=== PATIENT | male | born 1935 | race Caucasian/White ===

== ENCOUNTER → 2017-11-29 15:54 | Outpatient (CLI) | payer MEDICARE, SELFPAY ==
[2017-11-29 16:03] LABS: Hematocrit 42.1 % (40-54); Mean Corp Hgb Conc 33.3 g/gl (32-36); Mean Corpuscular Hgb 31.7 pg (27.0-32.0); Mean Corpuscular Volume 95.2 fL (80-94); Mean Platelet Vol. 11.1 fl (6.2-12.0); Platelet Count 225 K/mm3 (150-450); RBC Distribution Width CV 14.9 % (11.6-14.6); RBC Distribution Width SD 52.1 fl (35.1-43.9); Red Blood Count 4.42 M/mm3 (4.6-6.2); White Blood Count 6.9 K/mm3 (4.4-11.0)
[2017-11-29 16:04] LABS: Scan Indicated on CBC? Y/N NO
[2017-11-29 16:25] LABS: BUN 14 mg/dL (7-18); BUN/Creat Ratio 9.6 RATIO (10-20); Creatinine, Serum 1.46 mg/dL (0.70-1.30); EST Glomerular Filtration Rate 49 mL/min (>60); Est Glom Filt Rate - Afr Amer 60 mL/min (>60); Glucose 161 mg/dL (74-106)
[2017-11-29 16:26] LABS: Anion Gap 8 (5-15); Calcium,Total 8.4 mg/dL (8.5-10.1); Chloride 106 mmol/L (98-107); Cholesterol 134 mg/dL (200); High Density Lipoprotein 46 mg/dL; Sodium Level 141 mmol/L (136-145); Triglycerides 90 mg/dL; Very Low Density Lipoprotein 18 mg/dL (5-40)
== END ==
PROVIDERS: Family Provider Internal Medicine; PCP Internal Medicine; Visit Provider Internal Medicine
DX: N18.3 Chronic kidney disease, stage 3 (moderate) (principal); E78.00 Pure hypercholesterolemia, unspecified
CPT/HCPCS: 80048; 80061; 85027

== ENCOUNTER → 2018-05-30 12:03 | Outpatient (CLI) | payer MEDICARE, SELFPAY ==
[2018-05-30 12:30] LABS: Anion Gap 7 (5-15); BUN 14 mg/dL (7-18); BUN/Creat Ratio 10.4 RATIO (10-20); Calcium,Total 8.5 mg/dL (8.5-10.1); Chloride 107 mmol/L (98-107); Creatinine, Serum 1.35 mg/dL (0.70-1.30); EST Glomerular Filtration Rate 54 mL/min (>60); Est Glom Filt Rate - Afr Amer 65 mL/min (>60); Glucose 84 mg/dL (74-106); Potassium 3.9 mmol/L (3.5-5.1); Sodium Level 142 mmol/L (136-145)
== END ==
PROVIDERS: Family Provider Internal Medicine; PCP Internal Medicine; Referring Provider Nurse Practitioner; Visit Provider Nurse Practitioner
DX: N18.3 Chronic kidney disease, stage 3 (moderate) (principal)
CPT/HCPCS: 80048

== ENCOUNTER 2018-07-31 14:38 | Emergency (ER) | payer MEDICARE, SELFPAY ==
[2018-07-31 14:39] VITALS: BP 143/85; PULSE 106; RESP 15; TEMP 36.8; O2SAT 95; BMI 25.7
[2018-07-31 16:40] VITALS: PULSE 100; RESP 21; O2SAT 95
--- NOTE | 2018-07-31 17:33 | EKG12_ITS ---
Test Reason : Blood Pressure : / mmHG Vent. Rate : 088 BPM Atrial Rate : 088 BPM P-R Int : 288 ms QRS Dur : 120 ms QT Int : 374 ms P-R-T Axes : 089 -81 011 degrees QTc Int : 452 ms Sinus rhythm with 1st degree A-V block Left axis deviation Right bundle branch block Abnormal ECG Confirmed by ANIL FARRELL, PRAVEEN ([id number]), supervising editor news reel JOÃO DIAZ ([id number]) on 08/02/2018 3:20:55 PM Referred By: ISHAAN Confirmed By:PRAVEEN MA MD
--- NOTE | 2018-07-31 17:37 | RAD_ITS ---
STUDY: X-RAY CHEST REASON FOR EXAM: Male, 82 years old. Hypertension dizziness TECHNIQUE: Single AP portable view of the chest. COMPARISON: January 28, 2017 chest x-ray FINDINGS: There is a pattern of chronic appearing interstitial markings with areas of probable emphysematous change with a few areas of fibrosis. There is no demonstrated pleural abnormality. There is borderline cardiomegaly. Normal mediastinum and leydi. Normal visualized pulmonary arteries. There is atherosclerotic tortuosity of the aortic arch and descending thoracic aorta. There are diffuse degenerative changes of the visualized thoracic spine. Normal visualized ribs, clavicles, and shoulders. There is no demonstrated abnormality of the visualized soft tissue structures of the upper abdomen. RAD/Chest 1 View (Portable) IMPRESSION: Stable chest, no definitive acute focal infiltrate. Electronically Signed: Katina Espinoza MD at 18:24 EST Tel , Service support ,
[2018-07-31 17:52] VITALS: BP 146/93; BP 152/91; BP 153/80; PULSE 82; PULSE 92; PULSE 96
[2018-07-31 18:12] LABS: Anion Gap 9 (5-15); BUN 14 mg/dL (7-18); BUN/Creat Ratio 11.7 RATIO (10-20); Calcium,Total 8.7 mg/dL (8.5-10.1); Chloride 107 mmol/L (98-107); EST Glomerular Filtration Rate 62 mL/min (>60); Est Glom Filt Rate - Afr Amer 75 mL/min (>60); Estimated Creatinine Clearance 52.29 ml/min; Glucose 90 mg/dL (74-106); Potassium 4.1 mmol/L (3.5-5.1); Sodium Level 142 mmol/L (136-145)
[2018-07-31 18:17] LABS: Absolute Lymphocyte Count 1.56 X10^3/ul (0.83-4.51); Absolute Neutrophil Count 7.8 X10^3/uL (2.0-7.7); Basophil# 0.02 X10^3/uL; Basophil% 0.2 % (0-1); Eosinophil# 0.04 X10^3/uL; Eosinophils% 0.4 % (0-5); Hematocrit 43.8 % (40-54); Hemoglobin 14.6 g/dl (13.0-16.5); Lymphocyte # 1.56 X10^3/ul (4.0); Lymphocyte % 15.7 % (19-41); Mean Corp Hgb Conc 33.3 g/gl (32-36); Mean Corpuscular Hgb 32.1 pg (27.0-32.0); Mean Corpuscular Volume 96.3 fL (80-94); Mean Platelet Vol. 10.8 fl (6.2-12.0); Monocyte# 0.51 X10^3/uL; Monocyte% 5.1 % (0-10); Neutrophil # 7.77 X10^3/uL (2.7-7.7); Neutrophil % 78.5 % (47-70); Platelet Count 226 K/mm3 (150-450); RBC Distribution Width CV 13.9 % (11.6-14.6); RBC Distribution Width SD 49.1 fl (35.1-43.9); Red Blood Count 4.55 M/mm3 (4.6-6.2); White Blood Count 9.9 K/mm3 (4.4-11.0)
[2018-07-31 18:23] LABS: POSITIVE COUNT NO; POSITIVE DIFFERENTIAL NO; POSITIVE MORPHOLOGY NO
--- NOTE | 2018-07-31 18:42 | ED.DCSUM_ITS ---
- ER Visit Summary Date of Service: 07/31/18 Chief Complaint: Dizziness History of Present Illness: The patient is a 82 M who states that for the past 2 nights he has been laying in bed and goes to roll to his right side and has several seconds of room spinning. It abates that he goes back to bed. Today w ent to lay back in his chair and developed a near syncope-like sensation that started his feet and moved up to his chest. That has since abated. He said no further symptoms while waiting in the waiting room. History of peripheral arterial disease as well as COPD. He also has a history of GI bleed he is on Plavix and he is a smoker. He denies any black or bloody stools Physical Examination: Afebrile vital signs are stable Gen: Well-nourished well-developed Head: Normocephalic atraumatic Eyes: Perrl EOMI ENT: TMs clear no rhinorrhea moist mucous membranes Neck: Supple no lymphadenopathy no JVD nontender CVS: Regular rate rhythm no murmurs normal S1-S2 Respiratory: No distress clear to auscultation bilaterally chest nontender Abdomen: Soft nontender nondistended normal bowel sounds no masses Back: Nontender Extremity: Nontender no edema Skin: Normal color no rash Neuro: alert orientated ?3 CN II-XII intact normal strength sensation reflexes gait cerebellar Psych: Normal affect normal mood Test Results: EKG sinus with a rate of 88 CBC chemistries troponin were negative. Chest x-ray negative. Emergency Department Course and Treatment: Orthostatics were negative. He states he had another near syncopal-like event in front of the nurse while on the monitor but there was no dysrhythmia noted and it lasted seconds and resolved. He states he feels like he wants to go home he does not wish to be admitted. He would like to go home and eat patient will follow up with his doctor return if worsening or concerns Impression: 1. Dizziness 2. Near syncope This note was generated with [employer] dictation software. It may contain incorrect words, spelling, and punctuation that were not noted in review of the chart prior to signing ED Disposition - Plan for ED Patient: Disposition: Home or Assisted Living Chief Complaint: Dizziness Instructions: ED Dizziness UKO, ED Near Syncope Unkn Referrals: Rich Burnett MD [Primary Care Provider] - 2 Days
[2018-07-31 18:59] VITALS: BP 153/72; PULSE 84; RESP 22; O2SAT 97
--- NOTE | 2018-07-31 19:00 | ED.RN ---
THIS NURSE REVIEWED D/C INSTRUCTIONS WITH PT AND FAMILY. PT VERBALIZED UNDERSTANDING OF INSTRUCTIONS. IV D/C. IV CATHETER INTACT. PT TOLERATED WELL. PT DENIES FURTHER NEEDS OR QUESTIONS AT THIS TIME
== END 2018-07-31 19:01 | disposition home or self-care (01) ==
PROVIDERS: Emergency Provider Emergency Medicine; Family Provider Internal Medicine; PCP Internal Medicine
DX: R42 Dizziness and giddiness (principal); R55 Syncope and collapse; J44.9 Chronic obstructive pulmonary disease, unspecified; F17.200 Nicotine dependence, unspecified, uncomplicated; Z87.19 Personal history of other diseases of the digestive system; Z79.01 Long term (current) use of anticoagulants; Z79.899 Other long term (current) drug therapy
CPT/HCPCS: 71045; 80048; 84484; 85025; 93005; 99285

== ENCOUNTER → 2018-11-23 10:07 | Outpatient (CLI) | payer MEDICARE, SELFPAY ==
[2018-11-23 10:24] LABS: Hematocrit 44.3 % (40-54); Mean Corp Hgb Conc 33.9 g/gl (32-36); Mean Corpuscular Hgb 32.1 pg (27.0-32.0); Mean Corpuscular Volume 94.7 fL (80-94); Platelet Count 242 K/mm3 (150-450); RBC Distribution Width CV 14.5 % (11.6-14.6); RBC Distribution Width SD 50.1 fl (35.1-43.9); Red Blood Count 4.68 M/mm3 (4.6-6.2); White Blood Count 7.8 K/mm3 (4.4-11.0)
[2018-11-23 10:29] LABS: Scan Indicated on CBC? Y/N NO
[2018-11-23 10:35] LABS: ALB/GLOB Ratio 0.8 RATIO (0.9-2.4); AST(SGOT) 22 U/L (15-37); Alanine Aminotransfer ALT/SGPT 22 U/L (16-61); Albumin, Serum 3.3 g/dL (3.2-5.0); Alkaline Phosphatase 71 U/L (45-117); Anion Gap 5 (5-15); BUN 16 mg/dL (7-18); BUN/Creat Ratio 11.9 RATIO (10-20); Calcium,Total 8.6 mg/dL (8.5-10.1); Chloride 110 mmol/L (98-107); Cholesterol 155 mg/dL (200); Creatinine, Serum 1.34 mg/dL (0.70-1.30); EST Glomerular Filtration Rate 54 mL/min (>60); Est Glom Filt Rate - Afr Amer 66 mL/min (>60); Globulin 4.3 g/dL (2.2-4.2); Glucose 95 mg/dL (74-106); High Density Lipoprotein 48 mg/dL; Potassium 4.1 mmol/L (3.5-5.1); Protein, Total 7.6 g/dL (6.4-8.2); Sodium Level 143 mmol/L (136-145); Triglycerides 108 mg/dL; Very Low Density Lipoprotein 22 mg/dL (5-40)
== END ==
PROVIDERS: Family Provider Internal Medicine; PCP Internal Medicine; Referring Provider Internal Medicine; Visit Provider Internal Medicine
DX: E78.00 Pure hypercholesterolemia, unspecified (principal); N18.3 Chronic kidney disease, stage 3 (moderate)
CPT/HCPCS: 80053; 80061; 85027

== ENCOUNTER → 2019-05-29 12:39 | Outpatient (CLI) | payer MEDICARE, SELFPAY ==
[2019-05-29 13:28] LABS: Anion Gap 6 (5-15); BUN 8 mg/dL (7-18); BUN/Creat Ratio 6.3 RATIO (10-20); Calcium,Total 8.7 mg/dL (8.5-10.1); Chloride 108 mmol/L (98-107); Creatinine, Serum 1.26 mg/dL (0.70-1.30); EST Glomerular Filtration Rate 58 mL/min (>60); Est Glom Filt Rate - Afr Amer 71 mL/min (>60); Glucose 84 mg/dL (74-106); Potassium 3.9 mmol/L (3.5-5.1); Sodium Level 144 mmol/L (136-145)
== END ==
PROVIDERS: Family Provider Internal Medicine; PCP Internal Medicine; Referring Provider Nurse Practitioner; Visit Provider Nurse Practitioner
DX: N18.3 Chronic kidney disease, stage 3 (moderate) (principal)
CPT/HCPCS: 80048

== ENCOUNTER → 2019-11-20 13:13 | Outpatient (CLI) | payer MEDICARE, SELFPAY ==
[2019-11-20 13:41] LABS: ALB/GLOB Ratio 0.8 RATIO (0.9-2.4); AST(SGOT) 17 U/L (15-37); Alanine Aminotransfer ALT/SGPT 24 U/L (16-61); Albumin, Serum 3.4 g/dL (3.2-5.0); Alkaline Phosphatase 74 U/L (45-117); Anion Gap 4 (5-15); BUN 13 mg/dL (7-18); BUN/Creat Ratio 9.1 RATIO (10-20); Calcium,Total 8.7 mg/dL (8.5-10.1); Chloride 109 mmol/L (98-107); Cholesterol 143 mg/dL (200); Creatinine, Serum 1.43 mg/dL (0.70-1.30); EST Glomerular Filtration Rate 50 mL/min (>60); Est Glom Filt Rate - Afr Amer 61 mL/min (>60); Globulin 4.1 g/dL (2.2-4.2); Glucose 92 mg/dL (74-106); High Density Lipoprotein 46 mg/dL; Potassium 3.9 mmol/L (3.5-5.1); Protein, Total 7.5 g/dL (6.4-8.2); Sodium Level 141 mmol/L (136-145); Triglycerides 120 mg/dL; Very Low Density Lipoprotein 24 mg/dL (5-40)
== END ==
PROVIDERS: PCP Internal Medicine; Referring Provider Internal Medicine; Visit Provider Internal Medicine
DX: E78.00 Pure hypercholesterolemia, unspecified (principal)
CPT/HCPCS: 80053; 80061

== ENCOUNTER 2020-08-08 14:37 | Emergency (ER) | payer MEDICARE, SELFPAY ==
[2020-08-08 14:39] VITALS: BP 135/79; PULSE 97; RESP 18; TEMP 35.8; O2SAT 97; BMI 26.5
[2020-08-08 14:43] VITALS: BP 160/79; PULSE 97; RESP 18; O2SAT 95
--- NOTE | 2020-08-08 14:43 | EKG12_ITS ---
Test Reason : STROKE TEAM Blood Pressure : / mmHG Vent. Rate : 091 BPM Atrial Rate : 091 BPM P-R Int : 272 ms QRS Dur : 124 ms QT Int : 378 ms P-R-T Axes : 105 -84 071 degrees QTc Int : 464 ms Sinus rhythm with 1st degree A-V block Left axis deviation Right bundle branch block Inferior infarct , age undetermined Abnormal ECG Confirmed by RADHA FARRELL, REGINALD ([id number]), electronic news gathering editor JOÃO DIAZ ([id number]) on 08/13/2020 6:34:05 AM Referred By: JORY Confirmed By:REGINALD GARCIA MD
--- NOTE | 2020-08-08 14:43 | CT_ITS ---
STUDY: CT HEAD STROKE PROTOCOL W/O CONTRAST INJECTION REASON FOR EXAM: Male, 84 years old. Neuro deficit, acute stroke suspected RADIATION DOSAGE (If Supplied By Facility): CTDIvol = ( 44.99 ) mGy, DLP = ( 863.60 ) mGycm TECHNIQUE: Transaxial CT imaging of the brain was performed without administration of intravenous contrast material. Individualized dose optimization techniques were used for this CT. COMPARISON: Comparison is made with prior examination dated 01/24/2017. FINDINGS: Normal soft tissue structures. Normal calvarium. There is mild cerebral atrophy with widening of the extra-axial spaces and ventricular dilatation. There are areas of decreased attenuation within the white matter tracts of the supratentorial brain, consistent with microvascular disease changes. Normal basal ganglia and thalami. Normal brainstem. Normal cerebellum. There is no intracranial hemorrhage. There are no findings of an acute ischemic infarction. Atherosclerotic calcification of the cavernous portions of the internal carotid arteries as well as the vertebral arteries. Partial opacification of the left sphenoid sinus and minimal mucosal thickening of the posterior aspect of the right ethmoid sinus. CT/STROKE Brain/Head without Cont IMPRESSION: Chronic involutional changes of the brain. N.B. : The above information has been verbally conveyed by Joe Rangel to Jamal Richards on 08/08/2020 15:00:45 (ET). Electronically Signed: Joe Rangel, at 15:02 EST , Service support ,
--- NOTE | 2020-08-08 14:53 | CM.ED ---
Social Work Responding to stroke alert. No family present. Per medical team patient spouse left. At the time that patient left was unaware that patient would be a stroke alert. Telephone call to patient spouse, voicemail left. Only have home phone listed on chart. Will continue to follow as needed. Jerel MANDEL, HAYDEN
[2020-08-08 14:56] LABS: Bedside Glucose 98 mg/dL (70-110)
--- NOTE | 2020-08-08 14:56 | NURSING ---
[id number] STROKE ALERT CALLED
[2020-08-08 14:59] VITALS: BMI 27.8
--- NOTE | 2020-08-08 15:01 | ED.DCSUM_ITS ---
- ER Visit Summary Date of Service: 08/08/20 Chief Complaint: Lightheaded and off-balance History of Present Illness: The patient is a [address] Burnett. He reports that 2 days ago when he got out of bed he felt very lightheaded and off balance. He fell and hit his head against the wall. Did not have loss of consciousness. He is not on anticoagulants. However, he is on Plavix and aspirin. He states that he felt fine yesterday. Patient went to bed last night at 1030 and was fine. He woke at 430 this morning and when he got out of bed he was very lightheaded and off-balance again. States this only occurs when he stands up. There is no vertigo. He has no symptoms with movement of his head. He denies any syncope. Patient denies any other neurologic symptoms. He does not have a headache. No numbness or weakness. No change in his speech. No expressive or receptive aphasia. No vertigo. On review of systems patient reports he has a cough is productive clear sputum without blood. He denies any fever, chills, chest pain, shortness of breath. Physical Examination: Vitals: Stable. Afebrile. General: Well-nourished and well-developed. Head: Normocephalic atraumatic. Neck: Supple, no lymphadenopathy. No JVD. Nontender. Cardiovascular: Regular rate and rhythm. No murmurs. Respiratory: No respiratory distress. Clear to auscultation bilaterally. Abdominal: Soft, nontender, nondistended, normal bowel sounds. No guarding, rebound, or peritoneal signs. Back: Nontender. Extremities: Nontender, no edema. Skin: Normal color, no rash. Neurologic: Alert and oriented ?3. Cranial nerves II through XII are intact. Normal strength and sensation. Psych: Normal affect. Test Results: EKG is sinus at 91 with first-degree AV block and a right bundle marni block. Some change from July 2018. Troponin is negative. Chem-7 gregorio ws a chloride of 111 and creatinine 1.32. CBC is normal. COVID-19 is negative. Clinical Impression(s) from Imaging Studies Brain CT 08/08/20 14:43 IMPRESSION: Chronic involutional changes of the brain. N.B. : The above information has been verbally conveyed by Joe Rangel to Jamal Richards on 08/08/2020 15:00:45 (ET). Electronically Signed: Joe Rangel, at 15:02 EST , Service support , ADDENDUM: 08/08/20 1509 IMPRESSION: Chronic involutional changes of the brain. N.B. : The above information has been verbally conveyed by Joe Rangel to Jamal Richards on 08/08/2020 15:00:45 (ET). Electronically Signed: Joe Rangel, at 15:02 EST , Service support , CTA head and neck is normal. Emergency Department Course and Treatment: Patient was made a stroke alert in triage. His NIH scale is 0. He is not a TPA candidate due to the timeframe of beginning greater than 16 hours ago and the fact that I do not feel that this is a stroke. The patient's complaints are consistent with orthostatic hypotension. However, his orthostatic vital signs are negative. Treatment Plan: This time I do not have an explanation for the patient's ataxia. It is dependent on his posture and is only present when standing. However, given his age I feel that he warrants admission to the hospital for further evaluation. He was discussed with Dr. Farah. Before the patient was able to go upstairs he decided that he did not want to be admitted to the hospital. I had a prolonged discussion with him that I do not have an explanation for his symptoms and that he may be having a stroke. He understands this and wants to leave despite this. He is alert and oriented x3. He is instructed to follow-up his primary care physician soon as possible. Return to the emergency department for any worsening symptoms. Disposition: Left AGAINST MEDICAL ADVICE. Impression: 1. Ataxia. 2. Left AGAINST MEDICAL ADVICE. This note was generated with [employer] software. It may contain incorrect words, spelling, and punctuation that were not noted in review of the chart prior to signing ED Disposition - Plan for ED Patient: Instructions: ED Stroke, Completed, ED Hypotension, Orthostatic Referrals: Rich Burnett MD [Primary Care Provider] - As soon as possible
--- NOTE | 2020-08-08 15:02 | ED.RN ---
SROKE ALERT CANCELLED AT [address] CORLEY
[2020-08-08 15:04] LABS: Absolute Lymphocyte Count 1.75 X10^3/uL (0.83-4.51); Absolute Neutrophil Count 4.7 X10^3/uL (2.0-7.7); Basophil# 0.04 X10^3/uL; Basophil% 0.6 % (0-1); Eosinophil# 0.11 X10^3/uL; Eosinophils% 1.5 % (0-5); Hemoglobin 14.8 g/dL (13.0-16.5); Lymphocyte # 1.75 X10^3/ul (4.0); Lymphocyte % 24.2 % (19-41); Mean Corp Hgb Conc 34.4 g/dL (32-36); Mean Corpuscular Hgb 32.2 pg (27.0-32.0); Mean Corpuscular Volume 93.5 fL (80-94); Mean Platelet Vol. 10.4 fl (6.2-12.0); Monocyte# 0.63 X10^3/uL; Monocyte% 8.7 % (0-10); NRBC Flagged by Analyzer 0 % (0-5); Neutrophil # 4.68 X10^3/uL (2.7-7.7); Neutrophil % 64.7 % (47-70); Platelet Count 263 K/mm3 (150-450); RBC Distribution Width CV 13.9 % (11.6-14.6); RBC Distribution Width SD 47.5 fl (35.1-43.9); White Blood Count 7.2 K/mm3 (4.4-11.0)
--- NOTE | 2020-08-08 15:05 | CM.ED ---
Social Work Per Dr. Richards, cancel stroke alert. Telephone call to patient spouse, Keon. Keon answering phone. Introduced self and aids social worker role. Keon plans to stay at home until called by medical team on plan of care for patient. Keon with no current questions. Medical team updated on above. Jerel Cornejo MSW, SUYAPAS
[2020-08-08 15:30] LABS: Anion Gap 3 (5-15); BUN 12 mg/dL (7-18); BUN/Creat Ratio 9.1 RATIO (10-20); Calcium,Total 8.8 mg/dL (8.5-10.1); Chloride 111 mmol/L (98-107); Creatinine, Serum 1.32 mg/dL (0.70-1.30); EST Glomerular Filtration Rate 55 mL/min (>60); Est Glom Filt Rate - Afr Amer 67 mL/min (>60); Estimated Creatinine Clearance 44.55 ml/min; Glucose 102 mg/dL (74-106); Potassium 3.9 mmol/L (3.5-5.1); Sodium Level 142 mmol/L (136-145)
[2020-08-08 15:37] VITALS: BP 118/65; BP 127/70; BP 136/70; PULSE 77; PULSE 81; PULSE 86
--- NOTE | 2020-08-08 15:53 | NURSING ---
COAGS TO SHORT.
--- NOTE | 2020-08-08 16:24 | CT_ITS ---
STUDY: CTA HEAD AND NECK WITH CONTRAST REASON FOR EXAM: Male, 84 years old. Neuro symptoms, off balance and lightheaded 2 days ago, returned today. RADIATION DOSAGE (If Supplied By Facility): CTDIvol = ( 26.68 ) mGy, DLP = ( 835.36 ) mGycm TECHNIQUE: CT angiography was performed with a multi-detector CT scanner. Data acquisition was obtained from the skull base through the vertex following intravenous administration of IV 100mL Isovue-370. MIP images were reconstructed from the axial data set. Post-processing of the angiographic images was performed, with multiplanar reformation and 3D reconstruction. Individualized dose optimization techniques were used for this CT. COMPARISON: 01/24/2017. FINDINGS: Normal bilateral petrous and cavernous carotid arteries. Anterior cerebral arteries are normal bilaterally. Normal intact anterior communicating artery (ACOM). Normal M1 and M2 segments of the middle cerebral arteries, with normal M1 bifurcations. There is non-visualization of the right posterior communicating artery (PCOM). There is non-visualization of the left posterior communicating artery (PCOM). Normal bilateral vertebral arteries. Normal basilar artery with a normal basilar bifurcation. The visualized bilateral superior cerebellar (SCA) arteries are normal. Normal bilateral P1, P2 and visualized P3 segments of the posterior cerebral arteries. There is no demonstrated aneurysm of the [place]. AORTIC ARCH: Normal visualized aortic arch. Normal origins of the brachiocephalic, left common carotid, and left subclavian arteries. RIGHT CAROTID ARTERIES: Normal right common carotid artery (CCA). Mild atherosclerotic calcification of the right carotid bulb without stenosis. There is mild atherosclerotic plaque formation of the origin of the right internal carotid artery without stenosis. Normal visualized cervical portion of the right internal carotid artery. Normal origin of the right external carotid artery (ECA). LEFT CAROTID ARTERIES: Normal left common carotid artery (CCA). Mild atherosclerotic calcification of the left carotid bulb without stenosis. Mild atherosclerotic calcification of the left internal carotid artery without stenosis. Normal visualized cervical portion of the left internal carotid artery. Normal origin of the left external carotid artery (ECA). VERTEBRAL ARTERIES: Normal bilateral vertebral arteries. Moderate centrilobular emphysema in the upper lobes. Mucosal thickening and fluid level in the left sphenoid sinus. CT/CTA Head AND Neck W/ Contrast IMPRESSION: 1. Normal CTA Head and neck with contrast. 2. Acute on chronic sphenoid sinusitis. 3. COPD. Electronically Signed: Katia Mazariegos MD at 17:29 EST Tel , Service support ,
--- NOTE | 2020-08-08 16:25 | RAD_ITS ---
STUDY: X-RAY CHEST REASON FOR EXAM: Male, 84 years old. off balance since this am at 430 last known well is 1030 -- HX OF TIA, HTN, COPD, EMPHYSEMA TECHNIQUE: Single AP portable view of the chest. COMPARISON: 07/31/2018. FINDINGS: The lungs are clear and expanded. There is no demonstrated pleural abnormality. Normal size heart. Normal mediastinum and leydi. Normal visualized pulmonary arteries. Normal visualized aortic arch and descending thoracic aorta. Normal visualized thoracic spine. Normal visualized ribs, clavicles, and shoulders. There is no demonstrated abnormality of the visualized soft tissue structures of the upper abdomen. RAD/Chest 1 View IMPRESSION: Normal x-ray examination of the chest. Electronically Signed: Katia Mazariegos MD at 17:03 EST Tel , Service support ,
[2020-08-08 17:12] VITALS: BP 157/78; PULSE 76; RESP 18; O2SAT 95
[2020-08-08 17:15] LABS: Partial Thromboplast Time 29.1 Seconds (24.1-36.2); Prothrombin Time (Protime)PT. 12.6 SECONDS (11.7-14.9)
[2020-08-08 17:38] VITALS: BP 157/78; PULSE 76; RESP 18; TEMP 36.6; O2SAT 95
--- NOTE | 2020-08-08 17:42 | NURSING ---
PCU OBS ATAXIA TERELETSKY
== END 2020-08-08 18:38 | disposition home or self-care (01) ==
PROVIDERS: Emergency Provider Emergency Medicine; PCP Internal Medicine
DX: R27.0 Ataxia, unspecified (principal); J43.9 Emphysema, unspecified; I73.9 Peripheral vascular disease, unspecified; Z79.02 Long term (current) use of antithrombotics/antiplatelets; Z79.82 Long term (current) use of aspirin; Z79.899 Other long term (current) drug therapy; Z72.0 Tobacco use; Z53.29 Procedure and treatment not carried out because of patient's decision for other reasons; Z86.73 Personal history of transient ischemic attack (TIA), and cerebral infarction without residual deficits
CPT/HCPCS: 70450; 70496; 70498; 71045; 80048; 82962; 84484; 85025; 85610; 85730; 87426; 93005; 99285; J7030; Q9967

== ENCOUNTER 2020-08-22 10:01 | Outpatient (RCR) | payer MEDICARE, SELFPAY | END 2020-08-22 23:59 | LOC: IMMUN 10:01 | PROVIDERS: PCP Internal Medicine; Referring Provider Family Medicine; Visit Provider Family Medicine | DX: Z23 Encounter for immunization (principal) | CPT/HCPCS: 0011A; 0012A; 91301 ==

== ENCOUNTER → 2020-09-17 | Outpatient (CLI) | payer MEDICARE, SELFPAY ==
[2020-09-17 13:24] LABS: Hematocrit 46.1 % (40-54); Hemoglobin 15.2 g/dL (13.0-16.5); Mean Corpuscular Hgb 31.3 pg (27.0-32.0); Mean Corpuscular Volume 95.1 fL (80-94); Mean Platelet Vol. 10.7 fl (6.2-12.0); Platelet Count 283 K/mm3 (150-450); RBC Distribution Width CV 14.3 % (11.6-14.6); Red Blood Count 4.85 M/mm3 (4.6-6.2); White Blood Count 8.2 K/mm3 (4.4-11.0)
[2020-09-17 13:36] LABS: ALB/GLOB Ratio 0.8 RATIO (0.9-2.4); AST(SGOT) 14 U/L (15-37); Alanine Aminotransfer ALT/SGPT 25 U/L (16-61); Albumin, Serum 3.5 g/dL (3.2-5.0); Alkaline Phosphatase 82 U/L (45-117); Anion Gap 5 (5-15); BUN 14 mg/dL (7-18); BUN/Creat Ratio 10.4 RATIO (10-20); Calcium,Total 8.7 mg/dL (8.5-10.1); Chloride 108 mmol/L (98-107); Cholesterol 146 mg/dL (200); Creatinine, Serum 1.35 mg/dL (0.70-1.30); EST Glomerular Filtration Rate 54 mL/min (>60); Est Glom Filt Rate - Afr Amer 65 mL/min (>60); Globulin 4.4 g/dL (2.2-4.2); Glucose 95 mg/dL (74-106); High Density Lipoprotein 49 mg/dL; Protein, Total 7.9 g/dL (6.4-8.2); Sodium Level 141 mmol/L (136-145); Triglycerides 125 mg/dL; Very Low Density Lipoprotein 25 mg/dL (5-40)
== END | disposition home or self-care (01) ==
PROVIDERS: PCP Internal Medicine; Referring Provider Internal Medicine; Visit Provider Internal Medicine
DX: E78.00 Pure hypercholesterolemia, unspecified (principal); Z79.899 Other long term (current) drug therapy
CPT/HCPCS: 80053; 80061; 85027

== ENCOUNTER → 2021-03-27 12:06 | Outpatient (CLI) | payer MEDICARE, SELFPAY ==
[2021-03-27 12:26] LABS: Anion Gap 3 (5-15); BUN 11 mg/dL (7-18); Chloride 110 mmol/L (98-107); Creatinine, Serum 1.22 mg/dL (0.70-1.30); EST Glomerular Filtration Rate 60 mL/min (>60); Est Glom Filt Rate - Afr Amer 73 mL/min (>60); Glucose 100 mg/dL (74-106); Potassium 3.9 mmol/L (3.5-5.1); Sodium Level 141 mmol/L (136-145)
== END ==
PROVIDERS: PCP Internal Medicine; Visit Provider Internal Medicine
DX: N18.31 Chronic kidney disease, stage 3a (principal)
CPT/HCPCS: 80048

== ENCOUNTER 2022-12-21 18:43 | Emergency (ER) | payer MEDICARE, SELFPAY ==
[2022-12-21 18:44] VITALS: BP 145/88; PULSE 138; RESP 18; TEMP 36.9; O2SAT 95; BMI 26.6
--- NOTE | 2022-12-21 19:36 | CT_ITS ---
STUDY: CT BRAIN WITHOUT CONTRAST REASON FOR EXAM: Male, 87 years old. Trauma. RADIATION DOSAGE (If Supplied By Facility): CTDIvol = ( 44.99 ) mGy, DLP = ( 897.35 ) mGycm TECHNIQUE: Transaxial CT imaging of the brain was performed without administration of intravenous contrast material. Individualized dose optimization techniques were used for this CT. COMPARISON: August 08, 2020 FINDINGS: Normal soft tissue structures. Normal calvarium. There is moderate to severe cerebral atrophy with widening of the extra-axial spaces and ventricular dilatation. There are areas of decreased attenuation within the white matter tracts of the supratentorial brain, consistent with microvascular disease changes. Normal basal ganglia and thalami. Normal brainstem. There is moderate cerebellar atrophy. There is no intracranial hemorrhage. There are no findings of an acute ischemic infarction. Normal visualized paranasal sinuses. CT/Brain/Head without Contrast IMPRESSION: Chronic involutional changes without evidence of acute intracranial or calvarial abnormality. No major interval change. AIDOC was utilized to assist in identifying pertinent positive findings in this case. Electronically Signed: Ronald Jauregui DO at 20:34 EDT Reading Location ID and State: [address] [place] [address] Tel [phone], Service support ,
--- NOTE | 2022-12-21 19:36 | CT_ITS ---
STUDY: CT CHEST, ABDOMEN T PELVIS WITH CONTRAST REASON FOR EXAM: Male, 87 years old. Trauma. RADIATION DOSAGE (If Supplied By Facility): CTDIvol = ( 19.93 ) mGy, DLP = ( 3649.42 ) mGycm TECHNIQUE: Transaxial imaging was performed following intravenous administration of IV 100mL Isovue-370. Multiplanar coronal and sagittal images were reformatted. Individualized dose optimization techniques were used for this CT. COMPARISON: Chest, July 31, 2018. FINDINGS: CHEST Diffuse emphysematous changes of the lungs without acute infiltrate or mass. No pneumothorax. There is no demonstrated pleural abnormality. Normal heart and pericardium. Coronary artery calcifications. There are calcified subcarinal lymph nodes. Nonspecific mediastinal nodes are noted paratracheal precarinal and AP window regions. Normal hilar regions. Normal unenhanced pulmonary arteries. There is atherosclerotic calcification of the aortic arch with tortuosity and elongation of the aortic arch and descending thoracic aorta. No dissection. Normal osseous structures. ABDOMEN The visualized lung bases are unremarkable. The visualized portions of the heart are within normal limits. Normal liver. Normal gallbladder and extrahepatic biliary system. Normal spleen. Normal pancreas. Normal bilateral adrenal glands. Normal right kidney. Normal right ureter. Small cortical cysts in the mid left kidney. Normal left ureter. Normal visualized stomach. Normal small intestine. Opinion sigmoid diverticulosis without acute inflammatory change. The proximal colon is unremarkable. The appendix is visualized and appears normal. There is diffuse atherosclerotic calcification of the abdominal aorta with elongation and tortuosity, but without a demonstrated aneurysm. Normal inferior vena cava. Normal retroperitoneum. PELVIS Poorly distended urinary bladder. Prostate is mildly enlarged with central calcifications oral seminal vesicles. There is no pelvic fluid. There is no pelvic lymphadenopathy or mass lesion. No free air is seen within the peritoneal cavity. There is diffuse atherosclerotic calcification of the pelvic arteries. Normal abdominal wall. Degenerative changes of the lumbar spine and hips. There is no fracture. No lytic or blastic lesions are noted. CT/CT Chest, Abd, Pel w/Contrast IMPRESSION: 1. No acute traumatic injury to the chest, abdomen or pelvis. 2. Emphysematous changes of the lungs. 3. Splenic granulomata. 4. Enlarged prostate. 5. Left renal cysts. Electronically Signed: Ronald Jauregui DO at 20:29 EDT Reading Location ID and State: [facility] / [place] Tel [phone], Service support ,
--- NOTE | 2022-12-21 19:37 | CT_ITS ---
STUDY: CT CERVICAL SPINE WITHOUT CONTRAST REASON FOR EXAM: Male, 87 years old. Trauma RADIATION DOSAGE (If Supplied By Facility): CTDIvol = ( 25.15 ) mGy, DLP = ( 557.48 ) mGycm TECHNIQUE: High resolution transaxial imaging was performed without contrast material. Sagittal and coronal images were reconstructed. Individualized dose optimization techniques were used for this CT. COMPARISON: None FINDINGS: Normal craniovertebral junction. There are degenerative changes of the anterior atlantoaxial articulation. Normal odontoid process. Normal cervical lordosis. Normal vertebral bodies and posterior osseous elements. C2-3: Normal endplates. Mild loss of disc height. Facet joint degenerative change. Normal central canal. Minimal narrowing of the bilateral intervertebral neuroforamina. C3-4: Normal endplates. Mild loss of disc height with bulging annulus. Facet and uncovertebral joint degenerative change. Normal central canal. Narrowing of the right intervertebral neuroforamen. C4-5: Mild endplate spondylosis. Loss of disc height with bulging annulus. Facet and uncovertebral joint degenerative change. Normal central canal. Narrowing of the bilateral intervertebral neuroforamina. C5-6: Normal endplates. Loss of disc height with bulging annulus. Facet and uncovertebral joint degenerative change. Normal central canal. Mild narrowing of the right intervertebral neuroforamen. C6-7: Endplate spondylosis. Loss of disc height with vacuum disc phenomena diffusely bulging annulus. Facet and uncovertebral joint degenerative change. Normal central canal. Narrowing of the bilateral intervertebral neuroforamina. C7-T1: Normal endplates. Normal disc height and morphology. Normal central canal and intervertebral neuroforamina. Normal visualized soft tissue structures. CT/Spine Cervical without Contras IMPRESSION: Degenerative changes of the cervical spine without acute fracture or subluxation. Note: MRI is more sensitive than CT in detecting cord injury, ligamentous injury and epidural hematoma. If there is continued clinical concern for any of these entities, MRI should be considered.. AIDOC was utilized to assist in identifying pertinent positive findings in this case. Electronically Signed: Ronald Jauregui DO at 20:37 EDT ,
[2022-12-21] MEDS: 0.9% Normal Saline 1,000 ML 999 ML IV (19:49)
[2022-12-21 19:59] LABS: Absolute Lymphocyte Count 1.57 X10^3/uL (0.83-4.51); Absolute Neutrophil Count 7.1 X10^3/uL (2.0-7.7); Basophil# 0.06 X10^3/uL; Basophil% 0.6 % (0-1); Eosinophil# 0.14 X10^3/uL; Eosinophils% 1.4 % (0-5); Hematocrit 44.7 % (40-54); Lymphocyte # 1.57 X10^3/ul (0.83-4.51); Lymphocyte % 16.2 % (19-41); Mean Corp Hgb Conc 33.6 g/dL (32-36); Mean Corpuscular Hgb 31.4 pg (27.0-32.0); Mean Corpuscular Volume 93.7 fL (80-94); Monocyte# 0.73 X10^3/uL; Monocyte% 7.5 % (0-10); NRBC Flagged by Analyzer 0 % (0-5); Neutrophil # 7.14 X10^3/uL (2.7-7.7); Platelet Count 267 K/mm3 (150-450); RBC Distribution Width CV 14.5 % (11.6-14.6); RBC Distribution Width SD 50.2 fl (35.1-43.9); Red Blood Count 4.77 M/mm3 (4.6-6.2); White Blood Count 9.7 K/mm3 (4.4-11.0)
[2022-12-21 20:21] LABS: Anion Gap 9 (5-15); BUN 11 mg/dL (7-18); BUN/Creat Ratio 8.2 RATIO (10-20); Chloride 106 mmol/L (98-107); Creatinine, Serum 1.34 mg/dL (0.70-1.30); EST Glomerular Filtration Rate 54 mL/min (>60); Est Glom Filt Rate - Afr Amer 65 mL/min (>60); Glucose 107 mg/dL (74-106); Potassium 3.8 mmol/L (3.5-5.1); Sodium Level 142 mmol/L (136-145)
--- NOTE | 2022-12-21 20:58 | CM.ED ---
Social Work SW reviewed patient's chart, patient has completed HCPOA and LW documents on file as of 2006. Patient's HCPOA is Keon Escudero, and alternates are [place] and [place]. Naz Garces MSW, ALAYNA
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
[2022-12-21 23:40] VITALS: PULSE 120; RESP 16; O2SAT 96
== END 2022-12-21 23:40 | disposition home or self-care (01) ==
PROVIDERS: Emergency Provider Emergency Medicine; PCP Internal Medicine; Visit Provider Emergency Medicine
DX: S20.212A Contusion of left front wall of thorax, initial encounter (principal); V43.52XA Car driver injured in collision with other type car in traffic accident, initial encounter; Y93.89 Activity, other specified; I10 Essential (primary) hypertension; F17.210 Nicotine dependence, cigarettes, uncomplicated; Z79.899 Other long term (current) drug therapy
CPT/HCPCS: 70450; 71260; 72125; 74177; 80048; 85025; 93005; 96360; 99285; J7030; Q9967; A4216

== ENCOUNTER 2024-08-29 16:27 | Inpatient (IN) | payer MEDICARE, SELFPAY ==
[2024-08-29] VITALS (13 sets, daily range): BP systolic 109–143; BP diastolic 60–76; PULSE 86–129; RESP 16–23; TEMP 36.6–37.5; O2SAT 84–94; BMI 25.8; BMI 24.6
--- NOTE | 2024-08-29 17:48 | CT_ITS ---
PROCEDURE: ABDOMEN/PELVIS W IV CONT ONLY REASON FOR EXAM: Nausea, vomiting, diarrhea. TECHNIQUE: Abdomen and pelvis CT with intravenous contrast. COMPARISON: None. FINDINGS: Lung bases: Partially visualized emphysematous changes of the lungs. Left lower lobe posterior density which may represent atelectasis or infiltrate. Liver: Unremarkable. Gallbladder: Unremarkable. Spleen: Punctate calcifications likely representing prior granulomatous infection. Pancreas: Unremarkable. Adrenals: Left adrenal 9 mm nodule. Kidneys: Subcentimeter hypodense lesions that are too small to characterize. Bladder: Unremarkable. Reproductive Organs: Enlarged prostate. Bowel: Diverticulosis. No surrounding inflammatory changes. Normal caliber large and small bowel. Fluid-filled loops of small bowel which may represent diarrheal illness. Appendix: Normal. Lymph nodes: No suspicious lymph node enlargement. Vasculature: Severe atherosclerosis. Infrarenal abdominal aortic ectasia measures 2.5 cm right common iliac artery stent. Peritoneum / Retroperitoneum: No ascites. No free air. Bones: Unremarkable. CT/Abdomen/Pelvis W IV Cont ONLY IMPRESSION: No acute abnormalities of the abdomen or pelvis. Fluid-filled loops of small bowel which may represent diarrheal illness. Diverticulosis. Left lower density which may represent infiltrate versus atelectasis. Partially visualized emphysematous changes of the lungs. Indeterminate left adrenal nodule. No follow-up recommended based on size. Prostatomegaly. One or more dose reduction techniques were used (e.g., Automated exposure contr ol, adjustment of the mA and/or kV according to patient size, use of iterative reconstruction technique). Reading Location: [id number]
--- NOTE | 2024-08-29 17:48 | EKG12_ITS ---
Test Reason : PALP Blood Pressure : */* mmHG Vent. Rate : 123 BPM Atrial Rate : 125 BPM P-R Int : 208 ms QRS Dur : 112 ms QT Int : 314 ms P-R-T Axes : * -81 82 degrees QTcB Int : 449 ms Sinus tachycardia Left axis deviation Right bundle branch block Inferior infarct , age undetermined Abnormal ECG Confirmed by RADHA FARRELL, REGINALD ([id number]), editorial project manager KIM XIAO ([id number]) on 09/01/2024 7:20:31 AM Referred By: Confirmed By: REGINALD GARCIA MD
[2024-08-29] MEDS: Ondansetron 4 MG/2 ML Vial IV (18:10)
[2024-08-29] MEDS: 0.9% Normal Saline (1000mL) 1,000 ML 999 ML IV (18:10)
--- NOTE | 2024-08-29 18:10 | EDS_ITS ---
HPI History of Present Illness Chief Complaint: Nausea/Vomiting/Diarrhea Narrative Narrative: Chief complaint and HPI: Nausea, vomiting, diarrhea. 88-year-old male with past medical history of TIA on Plavix, CKD, HLD, HTN, COPD presents for evaluation of nausea, vomiting, diarrhea. Onset of symptoms this morning. Patient states he originally had diffuse abdominal pain however his abdominal pain is improving. He states that shortly after having multiple episodes of nonbloody diarrhea as well as nonbloody emesis he became weak. States his heart rate was in the 120s at home which is why he presents for evaluation. He states at baseline he has a cough. Denies any fever, chills, chest pain, dysuria, shortness of breath, URI symptoms. Review of systems: See HPI Medications: As listed on the chart Allergies: As listed on the chart PFSH: Per chart Vital signs: As listed on the chart. Reviewed. Physical exam: Gen: A&O x3, NAD Head: Normocephalic, atraumatic Eyes: No sclera icterus, conjunctiva clear, PERRL, EOMI ENT: Dry mucous membranes Neck: Trachea midline, No JVD CV: Tachycardic, regular rhythm no murmurs, no peripheral edema Resp: Lungs CTA BL, no w/r/c GI: Abd soft, non-distended, mildly tender to palpation , no r/r/g : No CVA tenderness Musc: Full ROM, no deformity Skin: Warm, dry Neuro: Alert, oriented, grossly intact, sensation intact Psych: Cooperative, appropriate mood and affect [facility] Medical History Hypercholesterolemia Atherosclerosis of [place] coronary artery of [place] heart without angina pectoris Bifascicular block Chronic kidney disease (CKD) Ataxia Dyslipidemia COPD (chronic obstructive pulmonary disease) Tobacco dependence TIA (transient ischemic attack) Upper GI bleed Peripheral arterial disease Hypertension Home Medications ?Medication ?Instructions ?Recorded ?Last Taken ?Type multivitamin (Multiple Vitamins 1 ea PO DAILY SUPPLEME NT 01/24/17 08/08/20 History tablet) tiotropium bromide 18 mcg capsule 2 puff IH QHS BREATH ING 01/24/17 08/07/20 History with inhalation device (Spiriva with HandiHaler) ascorbic acid (vitamin C) 500 mg 500 mg PO DAILY@0800 07/31/18 08/08/20 History tablet (Vitamin C) Supplimentation clopidogrel 75 mg tablet 75 mg PO DAILY Blood thinn 0 07/31/18 08/08/20 History fluticasone propionate 50 2 spray intranasal BID Aller gies 07/31/18 08/08/20 History mcg/actuation nasal spray,suspension lisinopril 40 mg tablet 40 mg PO DAILY BP 08/08/20 0 08/08/20 History simvastatin 40 mg tablet 40 mg PO DAILY CHOLESTEROL 0 08/08/20 08/07/20 History trazodone 150 mg tablet 150 mg PO QHS SLEEP 08/08/20 08/07/20 History albuterol sulfate 90 mcg/actuation 2 puff inhalation Q 6H PRN PRN 12/21/22 Unknown History aerosol inhaler wheezing/sob amlodipine 5 mg tablet 2.5 mg PO DAILY HTN 08/28/24 Unknown History Allergy/AdvReac Type Severity Reaction Status Date / Time No Known Allergies Allergy Verified 12/21/22 18:44 Social History Smoking Status: Current every day smoker tobacco type: cigarettes EXAM Physical Exam Const Vital Signs: 08/29/24 16:28 08/29/24 18:11 08/29/24 18:20 Temperature 97.8 F 98.1 F Temperature Source Temporal Temporal Pulse Rate 129 H 105 H Respiratory Rate 16 17 Blood Pressure 117/66 135/69 H Blood Pressure Mean 83 91 Pulse Ox 93 90 87 Oxygen Delivery Method Room Air Room Air Oxygen Flow Rate (L/min) 08/29/24 18:22 08/29/24 18:57 08/29/24 19:10 Temperature Temperature Source Pulse Rate 101 H Respiratory Rate 18 Blood Pressure 143/71 H Blood Pressure Mean 95 Pulse Ox 93 88 84 Oxygen Delivery Method Nasal Cannula Room Air Room Air Oxygen Flow Rate (L/min) 2 08/29/24 19:56 08/29/24 20:00 08/29/24 21:00 Temperature 99.5 F H 99.5 F H 98.3 F Temperature Source Oral Oral Oral Pulse Rate 92 89 93 Respiratory Rate 19 H 18 20 H Blood Pressure 133/76 H 109/61 110/61 Blood Pressure Mean 95 77 77 Pulse Ox 94 93 92 Oxygen Delivery Method Nasal Cannula Nasal Cannula Nasal Cannula Oxygen Flow Rate (L/min) 2 2 2 08/29/24 22:00 Temperature 98.3 F Temperature Source Oral Pulse Rate 86 Respiratory Rate 16 Blood Pressure 122/60 H Blood Pressure Mean 80 Pulse Ox 94 Oxygen Delivery Method Nasal Cannula Oxygen Flow Rate (L/min) 2 MDM MDM MDM Narrative Medical decision making narrative: 88-year-old male with past medical history of TIA on Plavix, CKD, HLD, HTN, COPD presents for evaluation of nausea, vomiting, diarrhea, weakness. Differential diagnosis includes but is not limited to viral illness, pneumonia, gastroenteritis, diverticulitis, pancreatitis, UTI, dehydration, electrolyte abnormality, arrhythmia, ACS. NS bolus, Zofran ordered for symptoms. Laboratory workup ordered including CT abdomen and pelvis. EKG and chest x-ray reviewed see below. CBC with leukocytosis of 14.4. No anemia. Coagulation panel unremarkable. CMP shows baseline CKD. No transaminitis. Troponin unremarkable. BNP unremarkable. Lipase unremarkable. UA negative for UTI. CT abdomen pelvis shows fluid-filled loops of small bowel which may represent diarrheal illness. Patient having symptoms of diarrhea. Diverticulosis without diverticulitis. Patient has left lower density which is concerning for pneumonia versus atelectasis. Throughout the patient's stay here in the emergency department he has become hypoxic as low as 84% requiring nasal cannula. He is not endorsing any shortness of breath however given his leukocytosis with acute hypoxia and left lower lung density suspect pneumonia. Patient given Rocephin and azithromycin. Patient will warrant admission. Patient family updated of all the results and confirmed understanding of the plan. Patient accepted to the hospital by Dr. Espinosa. EKG: Interpreted by me/EM physician: EKG without acute ischemic changes Diagnostic: Interpreted by me/EM physician: Chest x-ray shows chronic interstitial markings. No pneumonia or pneumothorax. Impression: 1. Acute hypoxia requiring oxygen via nasal cannula 2. Pneumonia 3. CKD Lab Data Labs: Laboratory Results - last 24 hr 08/29/24 08/29/24 18:15 19:53 WBC 14.4 H RBC 4.80 Hgb 15.0 Hct 45.0 MCV 93.8 MCH 31.3 MCHC 33.3 RDW Std Deviation 49.8 H RDW Coeff of Maged 14.6 Plt Count 270 MPV 9.8 Immature Gran % (Auto) 0.500 Neut % (Auto) 91.0 H Lymph % (Auto) 3.1 L [place] % (Auto) 4.6 Eos % (Auto) 0.5 Baso % (Auto) 0.3 Absolute Neuts (auto) 13.1 H Absolute Lymphs (auto) 0.44 L Nucleated RBC % 0 PT 13.7 INR 1.0 APTT 28.9 Sodium 140 Potassium 3.9 Chloride 109 H Carbon Dioxide 26.0 Anion Gap 5 BUN 18 Creatinine 1.44 H Estim Creat Clear Calc 36.82 Est GFR (MDRD) Af Amer 60 Est GFR (MDRD) Non-Af 49 L BUN/Creatinine Ratio 12.5 Glucose 145 H Calcium 8.5 Total Bilirubin 0.50 AST 14 L ALT 18 Alkaline Phosphatase 61 Troponin I High Sens 15 B-Natriuretic Peptide 67.9 Total Protein 7.6 Albumin 3.2 Globulin 4.4 H Albumin/Globulin Ratio 0.7 L Lipase 19 L Urine Color Yellow Urine Clarity Clear Urine pH 6.0 Ur Specific [place] 1.010 Urine Protein 30 H Urine Glucose (UA) Normal Urine Ketones Negative Urine Occult Blood Negative Urine Nitrite Negative Urine Bilirubin Negative Urine Urobilinogen 1 H Ur Leukocyte Esterase Negative Urine RBC 0 SEEN Urine WBC 0 SEEN Ur Squamous Epith Cells 0 SEEN Urine Bacteria 0 SEEN Urine Mucus 0 SEEN Radiography Diagnostic Testing: Clinical Impression(s) from Imaging Studies Abdomen/Pelvis CT 08/29/24 17:48 IMPRESSION: No acute abnormalities of the abdomen or pelvis. Fluid-filled loops of small bowel which may represent diarrheal illness. Diverticulosis. Left lower density which may represent infiltrate versus atelectasis. Partially visualized emphysematous changes of the lungs. Indeterminate left adrenal nodule. No follow-up recommended based on size. Prostatomegaly. One or more dose reduction techniques were used (e.g., Automated exposure control, adjustment of the mA and/or kV according to patient size, use of iterative reconstruction technique). Reading Location: [facility] Chest X-Ray 08/29/24 19:15 IMPRESSION: Pulmonary findings as above. Reading Location: [facility] Discharge Plan Disposition Disposition: Acute Care Hospital [facility] Discharge Date/Time: 08/29/24 22:47
[2024-08-29 18:26] LABS: Absolute Lymphocyte Count 0.44 X10^3/uL (0.83-4.51); Absolute Neutrophil Count 13.1 X10^3/uL (2.0-7.7); Basophil# 0.04 X10^3/uL; Basophil% 0.3 % (0-1); Eosinophil# 0.07 X10^3/uL; Eosinophils% 0.5 % (0-5); Lymphocyte # 0.44 X10^3/ul (0.83-4.51); Lymphocyte % 3.1 % (19-41); Mean Corp Hgb Conc 33.3 g/dL (32-36); Mean Corpuscular Hgb 31.3 pg (27.0-32.0); Mean Corpuscular Volume 93.8 fL (80-94); Mean Platelet Vol. 9.8 fl (6.2-12.0); Monocyte# 0.66 X10^3/uL; Monocyte% 4.6 % (0-10); NRBC Flagged by Analyzer 0 % (0-5); Neutrophil # 13.09 X10^3/uL (2.7-7.7); POSITIVE DIFFERENTIAL YES; Platelet Count 270 K/mm3 (150-450); RBC Distribution Width CV 14.6 % (11.6-14.6); RBC Distribution Width SD 49.8 fl (35.1-43.9); White Blood Count 14.4 K/mm3 (4.4-11.0)
[2024-08-29 18:38] LABS: Prothrombin Time (Protime)PT. 13.7 SECONDS (11.7-14.9)
[2024-08-29 18:39] LABS: Partial Thromboplast Time 28.9 Seconds (24.1-36.2)
--- NOTE | 2024-08-29 18:56 | ED.RN ---
Dr. David notified that pt. was placed on 2L NC for an spo2 of 87%. Dr David requested this Rn removed the oxygen to further monitor if he stays low.
[2024-08-29 19:03] LABS: ALB/GLOB Ratio 0.7 RATIO (0.9-2.4); AST(SGOT) 14 U/L (15-37); Alanine Aminotransfer ALT/SGPT 18 U/L (16-61); Albumin, Serum 3.2 g/dL (3.2-5.0); Alkaline Phosphatase 61 U/L (45-117); Anion Gap 5 (5-15); BUN 18 mg/dL (7-18); BUN/Creat Ratio 12.5 RATIO (10-20); Calcium,Total 8.5 mg/dL (8.5-10.1); Chloride 109 mmol/L (98-107); Creatinine, Serum 1.44 mg/dL (0.70-1.30); EST Glomerular Filtration Rate 49 mL/min (>60); Est Glom Filt Rate - Afr Amer 60 mL/min (>60); Estimated Creatinine Clearance 36.82 ml/min; Globulin 4.4 g/dL (2.2-4.2); Glucose 145 mg/dL (74-106); Lipase 19 U/L (73-393); Potassium 3.9 mmol/L (3.5-5.1); Protein, Total 7.6 g/dL (6.4-8.2); Sodium Level 140 mmol/L (136-145); Troponin-I HS 15 pg/mL (3.0-78.0)
[2024-08-29 19:05] LABS: BNP,B-Type NATRIURETIC PEPTIDE 67.9 pg/mL (0-100)
--- NOTE | 2024-08-29 19:15 | RAD_ITS ---
PROCEDURE: CHEST PA AND LATERAL REASON FOR EXAM: Nausea, vomiting, diarrhea. TECHNIQUE: Frontal and lateral views of the chest. COMPARISON: None. FINDINGS: The heart size is normal. The mediastinal contour is unremarkable. Small bilateral pleural effusions. Cephalization of the pulmonary vessels suggestive of vascular congestion. Faint reticular opacities which may represent chronic interstitial changes, pneumonitis, or edema. The bones are unremarkable. RAD/Chest PA and Lateral IMPRESSION: Pulmonary findings as above. Reading Location: [id number]
[2024-08-29 20:06] LABS: Bacteria 0 SEEN /hpf (None Seen); Mucous, Urine 0 SEEN /hpf (<or=2+); Red Blood Cells-Urine 0 SEEN /hpf (0-5); Squamous Epithelial Cells - UA 0 SEEN /hpf (0-5); White Blood Cells 0 SEEN /hpf (0-5)
[2024-08-29 20:11] LABS: Color, Urine Yellow (Yellow); Glucose, Dipstick Normal (Normal); Ketone-Dipstick Negative (Negative); Leukocyte Esterase-Dipstick Negative /ul (Negative); Nitrite-Dipstick Negative (Negative); Occult Blood-Urine Negative /ul (Negative); Protein-Dipstick 30 mg/dl (Negative); Urine Bilirubin Dipstick Negative (Negative); Urine Clarity Clear (Clear); Urine Urobilinogen 1 mg/dl (Normal)
--- NOTE | 2024-08-29 21:47 | HP.PCM.HOS_ITS ---
HPI - General General Date of Admission: 08/29/24 Date of Service: 08/29/24 Chief Complaint: N/V/D, weakness, chronic cough. HPI Narrative The patient is an 88-year-old male with past medical history PAD, tobacco use, TIA, hypertension, hyperlipidemia, CKD stage III per GFR trending unclear subtype, COPD who presents to the [facility] ED on 08/29/2024 with onset of nausea, emesis and diarrhea starting earlier in the morning on day of presentation with original diffuse abdominal discomfort however that since improved and after this onset of multiple episodes of nonbloody diarrhea as well as nonbloody emesis with progressively worsening fatigue and weakness with no recent fevers or chills but palpitations prompting eventual ED evaluation be cautious. He does state he has a chronic unchanged cough and denies any recent fevers or chills or dyspnea. Workup in the ED included T97.8, heart rate 129, BP 117/66, respiratory rate 16, 93% on room air eventually desaturating to 84% on room air with most recent repeat vital signs T98.3 [place], heart rate 93, BP 110/61, respiratory rate 20, 82% on 2 L nasal cannula, CBC with WBC 14.4, hemoglobin 15, platelet 270 with left shift and lymphopenia, unremarkable coags, CMP with chloride 109, BUN/creat 18/1.44, GFR 49, glucose 145, unremarkable hepatic profile, troponin 15, BNP 67.9, urinalysis unremarkable, chest x-ray with small bilateral pleural effusions, cephalization of pulmonary vessels suggestive of vascular congestion, faint reticular opacities possibly chronic interstitial changes, edema or pneumonitis, CT abdomen and pelvis with IV contrast with no acute intra- abdominal findings with fluid-filled loops of small bowel possibly diarrheal illness related, diverticulosis, left lower density possibly infiltrate versus atelectasis, partial visualized emphysematous changes of the lungs, prostamegaly, indeterminate left adrenal nodule. In the ED patient ministered 1 L normal saline, Zofran 4 mg IV x 1, azithromycin 500 mg IV x 1 as well as Rocephin 1 g IV x 1. [facility] Medical History Hypercholesterolemia Atherosclerosis of [place] coronary artery of [place] heart without angina pectoris Bifascicular block Chronic kidney disease (CKD) Ataxia Dyslipidemia COPD (chronic obstructive pulmonary disease) Tobacco dependence TIA (transient ischemic attack) Upper GI bleed Peripheral arterial disease Hypertension Home Medications ?Medication ?Instructions ?Recorded ?Last Taken ?Type multivitamin (Multiple Vitamins 1 ea PO DAILY SUPPLEME NT 01/24/17 08/08/20 History tablet) tiotropium bromide 18 mcg capsule 2 puff IH QHS BREATH ING 01/24/17 08/07/20 History with inhalation device (Spiriva with HandiHaler) ascorbic acid (vitamin C) 500 mg 500 mg PO DAILY@0800 07/31/18 08/08/20 History tablet (Vitamin C) Supplimentation clopidogrel 75 mg tablet 75 mg PO DAILY Blood thinn 0 07/31/18 08/08/20 History fluticasone propionate 50 2 spray intranasal BID Aller gies 07/31/18 08/08/20 History mcg/actuation nasal spray,suspension lisinopril 40 mg tablet 40 mg PO DAILY BP 08/08/20 0 08/08/20 History simvastatin 40 mg tablet 40 mg PO DAILY CHOLESTEROL 0 08/08/20 08/07/20 History trazodone 150 mg tablet 150 mg PO QHS SLEEP 08/08/20 08/07/20 History albuterol sulfate 90 mcg/actuation 2 puff inhalation Q 6H PRN PRN 12/21/22 Unknown History aerosol inhaler wheezing/sob amlodipine 5 mg tablet 2.5 mg PO DAILY HTN 08/28/24 Unknown History Allergy/AdvReac Type Severity Reaction Status Date / Time No Known Allergies Allergy Verified 12/21/22 18:44 Family History (Updated 08/30/24 @ 02:[address] Wilma Espinosa MD) Father Liver cancer Mother No problems noted. Surgical History (Updated 08/30/24 @ 02:[address] Wilma Espinosa MD) History of dental surgery S/P cataract extraction Social History (Updated 08/30/24 @ 02:[address] Wilma Espinosa MD) household members: spouse Smoking Status: Current every day smoker tobacco type: cigarettes alcohol intake: never substance use type: does not use ROS ROS Narrative Admission Review of Systems: CONSTITUTIONAL: No weight loss, fever, chills, + weakness or fatigue. HEENT: Eyes: No visual loss, blurred vision, double vision or yellow sclerae. Ears, Nose, Throat: No hearing loss, sneezing, congestion, runny nose or sore throat. SKIN: No rash or itching, lesions, wounds. CARDIOVASCULAR: No chest pain, chest pressure or chest discomfort, palpitations, edema, orthopnea, syncopal events. RESPIRATORY: + Chronic dyspnea, unchanged chronic cough with occasional sputum production, occasional wheezing. No hemoptysis. GASTROINTESTINAL: + Anorexia, nausea, vomiting, diarrhea, abdominal cramping transiently. No melena, BRBPR. GENITOURINARY: No dysuria, frequency, urgency or retention. NEUROLOGICAL: No headache, dizziness, syncope, paralysis, ataxia, numbness or tingling in the extremities, focal weakness, change in bowel or bladder control, seizure. MUSCULOSKELETAL: No muscle, back pain, joint pain or stiffness. HEMATOLOGIC: No anemia. + Easy bleeding/bruising. LYMPHATICS: No enlarged nodes. No history of splenectomy. PSYCHIATRIC: No history of depression or anxiety. ENDOCRINOLOGIC: No reports of sweating, cold or heat intolerance. No polyuria or polydipsia. ALLERGIES: + History of allergic rhinitis. Vital Signs Vital Signs Vital Signs: 08/29/24 16:28 08/29/24 18:11 08/29/24 18:20 Temperature 97.8 F 98.1 F Temperature Source Temporal Temporal Pulse Rate 129 H 105 H Respiratory Rate 16 17 Blood Pressure 117/66 135/69 H Blood Pressure Mean 83 91 Pulse Ox 93 90 87 Oxygen Delivery Method Room Air Room Air Oxygen Flow Rate (L/min) 08/29/24 18:22 08/29/24 18:57 08/29/24 19:10 Temperature Temperature Source Pulse Rate 101 H Respiratory Rate 18 Blood Pressure 143/71 H Blood Pressure Mean 95 Pulse Ox 93 88 84 Oxygen Delivery Method Nasal Cannula Room Air Room Air Oxygen Flow Rate (L/min) 2 08/29/24 19:56 08/29/24 20:00 08/29/24 21:00 Temperature 99.5 F H 99.5 F H 98.3 F Temperature Source Oral Oral Oral Pulse Rate 92 89 93 Respiratory Rate 19 H 18 20 H Blood Pressure 133/76 H 109/61 110/61 Blood Pressure Mean 95 77 77 Pulse Ox 94 93 92 Oxygen Delivery Method Nasal Cannula Nasal Cannula Nasal Cannula Oxygen Flow Rate (L/min) 2 2 2 Weight Weight: 175 lb Body Mass Index (BMI) 25.8 Physical Exam Narrative Physical Examination: General: Awake, alert, oriented x 3 and cooperative, seated upright in the ED bed, fatigued, mildly ill-appearing. Skin: Normal color, normal turgor, no icterus, no cyanosis except occasional stage ecchymoses, bilateral lower extremity venous stasis skin changes. HEENT: AT/NC, EOMI, PERRLA, mildly dry MM, no carotid bruits or JVD noted. Lungs: Diminished, greater bases, mildly increased respiratory rate but no distress, no rales, ronchi or wheezing. Heart: Mildly tachycardic with regular rhythm; no gallop, rub audible. Abdomen: Soft, NTTP, ND, distant normal BS, no appreciated HSM. Extremities: No cyanosis, clubbing, or edema. Neurological: Patient awake, alert, oriented as noted, cognitive function intact; pupils equally reactive to light and accommodation, cranial nerves gross normal, moving all 4 extremities, no focal deficits, strength moderately to severely globally creased secondary to acute presentation. Psychiatric: Affect appears flat, fatigued, mildly ill-appearing, no acute evidence of depressive or anxiety feelings. Results Lab / Micro Data 08/29/24 18:15 08/29/24 18:15 Labs: Laboratory Results - last 24 hr 08/29/24 18:15: WBC 14.4 H, RBC 4.80, Hgb 15.0, Hct 45.0, MCV 93.8, MCH 31.3, MCHC 33.3, RDW Std Deviation 49.8 H, RDW Coeff of Maged 14.6, Plt Count 270, MPV 9.8, Immature Gran % (Auto) 0.500, Neut % (Auto) 91.0 H, Lymph % (Auto) 3.1 L, [place] % (Auto) 4.6, Eos % (Auto) 0.5, Baso % (Auto) 0.3, Absolute Neuts (auto) 13.1 H, Absolute Lymphs (auto) 0.44 L, Nucleated RBC % 0, PT 13.7, INR 1.0, APTT 28.9, Sodium 140, Potassium 3.9, Chloride 109 H, Carbon Dioxide 26.0, Anion Gap 5, BUN 18, Creatinine 1.44 H, Estim Creat Clear Calc 36.82, Est GFR (MDRD) Af Amer 60, Est GFR (MDRD) Non-Af 49 L, BUN/Creatinine Ratio 12.5, Glucose 145 H, Calcium 8.5, Total Bilirubin 0.50, AST 14 L, ALT 18, Alkaline Phosphatase 61, Troponin I High Sens 15, B-Natriuretic Peptide 67.9, Total Protein 7.6, Albumin 3.2, Globulin 4.4 H, Albumin/Globulin Ratio 0.7 L, Lipase 19 L 08/29/24 19:53: Urine Color Yellow, Urine Clarity Clear, Urine pH 6.0, Ur Specific [place] 1.010, Urine Protein 30 H, Urine Glucose (UA) Normal, Urine Ketones Negative, Urine Occult Blood Negative, Urine Nitrite Negative, Urine Bilirubin Negative, Urine Urobilinogen 1 H, Ur Leukocyte Esterase Negative, Urine RBC 0 SEEN, Urine WBC 0 SEEN, Ur Squamous Epith Cells 0 SEEN, Urine Bacteria 0 SEEN, Urine Mucus 0 SEEN Micro: Microbiology 08/29/24 18:13 Mucosa - Nose SARS-CoV-2, Influenza & RSV (PCR) - Final Imaging Radiology Impression Abdomen/Pelvis CT 08/29/24 17:48 IMPRESSION: No acute abnormalities of the abdomen or pelvis. Fluid-filled loops of small bowel which may represent diarrheal illness. Diverticulosis. Left lower density which may represent infiltrate versus atelectasis. Partially visualized emphysematous changes of the lungs. Indeterminate left adrenal nodule. No follow-up recommended based on size. Prostatomegaly. One or more dose reduction techniques were used (e.g., Automated exposure control, adjustment of the mA and/or kV according to patient size, use of iterative reconstruction technique). Reading Location: [facility] Chest X-Ray 08/29/24 19:15 IMPRESSION: Pulmonary findings as above. Reading Location: [facility] Assessment & Plan Assessment/Plan (1) Hypoxia: (2) Nausea vomiting and diarrhea: PLAN: Plan The patient is an 88-year-old male with past medical history PAD, tobacco use, TIA, hypertension, hyperlipidemia, CKD stage III per GFR trending unclear subtype, COPD who presents to the [facility] ED on 08/29/2024 with onset of nausea, emesis and diarrhea starting earlier in the morning on day of presentation with original diffuse abdominal discomfort however that since improved and after this onset of multiple episodes of nonbloody diarrhea as well as nonbloody emesis with progressively worsening fatigue and weakness with no recent fevers or chills but palpitations prompting eventual ED evaluation be cautious. #1. Acute hypoxia with persistent cough although reports unchanged with additional intractable nausea/emesis/diarrhea concerning for possible bilateral pneumonia, community acquired: Will admit to [facility] given improved vital signs with improvement of tachycardia, maintain on oxygen with wean as tolerated to room air, continue ATC budesonide, PRN albuterol, maintained on IV Rocephin and Azithromycin pending further evaluation with de-escalation of abx therapy if able to rule out PNA, encourage HOB, IS parameters w/ pending sputum cultures, full respiratory viral panel, procalcitonin, will obtain C. difficile and enteric pathogens to be cautious, urine antigens. Most recent echocardiogram noted 01/24/2017 with normal LV size, LV systolic function normal, EF 55%, mild TVI, mild focal AV calcification with BNP normal and troponin x 1 normal in the ED. #2. Hyperglycemia, mild, possibly reactive: Admission glucose 145, no per diabetic history, if remains elevated although confounded by steroid usage may require hemoglobin A1c assessment. #3. Chronic Kidney Disease Stage III, unclear subtype per GFR trend: Admission BUN/Cr 18/1.44, GFR 49, baseline renal function primarily 0.2-1.4, repeat BMP in AM. #4. Hypertension: Continue home regimen including amlodipine, lisinopril with hold parameters as needed, PRN hydralazine. #5. Hyperlipidemia: Continue patient on statin therapy. #6. Allergic rhinitis: We will continue patient on fluticasone regimen. #7. PAD: We will continue patient Plavix, statin, hypertensive regimen. #8. History TIA: Will continue Plavix, statin, hypertensive regimen as noted. #9. Tobacco Abuse: Encouraged cessation, inpatient consultation per RT, NR if desired. #10. DVT prophylaxis: Lovenox. #11. CODE status: Patient HCPOA is not in place but he notes his would be his medical decision-maker if necessary, does report living will in place. Discussed CODE status at length including difference between FULL code, DNR-CCA and DNR-CC status. Following discussions about the differences in these status, requested Full Code status. Advanced Care Planning Face to Face Time: 16 minutes. Charges/Coding Visit Charges Inpatient E&M: 63633 Init Hosp L3 Procedures Hospitalists Procedures: 70853 Advncd Care Plan 30 Min
[2024-08-29] MEDS: Ceftriaxone 1 GM/50 ML BAG IV (22:19)
[2024-08-29] MEDS: Azithromycin 500 MG in 0.9% Normal Saline (250mL Bag) 250 ML 255 MG IV (23:17)
[2024-08-29] MEDS: traZODone 100 MG Tablet 150 MG PO (23:43)
[2024-08-29] MEDS: Atorvastatin Calcium 20 MG Tablet PO (23:43)
[2024-08-30 01:09] LABS: Procalcitonin 0.36 ng/mL (0.00-0.09)
[2024-08-30 03:45] VITALS: BP 120/68; PULSE 88; RESP 20; TEMP 36.6; O2SAT 94
[2024-08-30] MEDS: Ondansetron 4 MG/2 ML Vial IV (06:45)
[2024-08-30] MEDS: 0.9% Saline Lock 10 ML Syringe IV (06:46)
[2024-08-30 06:59] LABS: Absolute Lymphocyte Count 0.99 X10^3/uL (0.83-4.51); Absolute Neutrophil Count 7.4 X10^3/uL (2.0-7.7); Basophil# 0.04 X10^3/uL; Basophil% 0.4 % (0-1); Eosinophil# 0.15 X10^3/uL; Eosinophils% 1.6 % (0-5); Hematocrit 38.7 % (40-54); Hemoglobin 12.8 g/dL (13.0-16.5); Lymphocyte # 0.99 X10^3/ul (0.83-4.51); Lymphocyte % 10.4 % (19-41); Mean Corp Hgb Conc 33.1 g/dL (32-36); Mean Corpuscular Hgb 31.4 pg (27.0-32.0); Mean Corpuscular Volume 95.1 fL (80-94); Mean Platelet Vol. 10.4 fl (6.2-12.0); Monocyte# 0.86 X10^3/uL; Monocyte% 9.1 % (0-10); NRBC Flagged by Analyzer 0 % (0-5); Neutrophil # 7.42 X10^3/uL (2.7-7.7); Neutrophil % 78.1 % (47-70); Platelet Count 227 K/mm3 (150-450); RBC Distribution Width CV 14.8 % (11.6-14.6); RBC Distribution Width SD 51.8 fl (35.1-43.9); Red Blood Count 4.07 M/mm3 (4.6-6.2); White Blood Count 9.5 K/mm3 (4.4-11.0)
[2024-08-30] MEDS: Budesonide Respules 0.5 MG/2 ML AMPUL.NEB. INHALATION ×2 (07:02→19:36)
[2024-08-30 07:03] VITALS: PULSE 87; RESP 18; O2SAT 94
[2024-08-30 07:37] LABS: ALB/GLOB Ratio 0.7 RATIO (0.9-2.4); AST(SGOT) 15 U/L (15-37); Alanine Aminotransfer ALT/SGPT 15 U/L (16-61); Albumin, Serum 2.7 g/dL (3.2-5.0); Alkaline Phosphatase 54 U/L (45-117); Anion Gap 5 (5-15); BUN 17 mg/dL (7-18); BUN/Creat Ratio 13.7 RATIO (10-20); Calcium,Total 8.2 mg/dL (8.5-10.1); Chloride 111 mmol/L (98-107); Creatinine, Serum 1.24 mg/dL (0.70-1.30); EST Glomerular Filtration Rate 59 mL/min (>60); Est Glom Filt Rate - Afr Amer 71 mL/min (>60); Estimated Creatinine Clearance 44.15 ml/min; Glucose 94 mg/dL (74-106); Potassium 3.8 mmol/L (3.5-5.1); Protein, Total 6.7 g/dL (6.4-8.2); Sodium Level 141 mmol/L (136-145)
[2024-08-30 08:38] VITALS: BP 125/65; PULSE 86; RESP 18; TEMP 36.2; O2SAT 96
[2024-08-30] MEDS: Clopidogrel Bisulfate 75 MG Tablet PO (08:45)
[2024-08-30] MEDS: Lisinopril 40 MG Tablet PO (08:45)
[2024-08-30] MEDS: Pantoprazole Sodium 40 MG Tablet PO (08:45)
[2024-08-30] MEDS: amLODIPine 5 MG Tablet PO (08:46)
[2024-08-30] MEDS: Enoxaparin 40 MG/0.4 ML Syringe SC (08:46)
[2024-08-30] MEDS: Fluticasone 0.05% 1 SPRAY NASAL.SRY 2 SPRAY NASAL ×2 (08:46→20:28)
[2024-08-30] MEDS: Menthol/Lanolin/Calamine/Znox 113 GM Tube 1 APPLIC TOPICAL ×3 (08:47→20:29)
--- NOTE | 2024-08-30 09:13 | ECHOD_ITS ---
Reason For Study: CHF Procedure This was a 2D Doppler, Color Flow transthoracic echocardiogram. Exam performed portable in patient room. Left Ventricle Normal LV size. Left ventricular systolic function is normal. The left ventricular ejection fraction is 65 %. Stage 1 diastolic dysfunction. No regional wall motion abnormalities noted. Right Ventricle Normal RV size. Normal systolic function. Atria Normal left atrium. Normal right atrium. Hypermobile atrial septum. Mitral Valve Normal mitral valve. Tricuspid Valve Normal tricuspid valve. Aortic Valve Trisinus/trileaflet aortic valve. Mild focal aortic valve calcification. Pulmonic Valve Normal pulmonic valve. Great Vessels Normal aortic root. The pulmonary artery is normal size. Normal inferior vena cava. Pericardium/Pleural No pericardial effusion. MMode/2D Measurements & Calculations LVOT diam: 2.2 cm Ao root diam: 3.7 cm LAV(MOD-bp): 48.6 ml LVOT area: 3.9 cm2 LAV(MOD-bp) Indexed: 24.9 ml/m2 LAV(MOD-sp2): 56.3 ml LAV(MOD-sp4): 38.4 ml _ SV(MOD-sp4): 34.6 ml SV(sp4-el): 38.2 ml LVAd ap4: 25.8 cm2 LVLd ap4: 8.0 cm SI(MOD-sp4): 17.7 ml/m2 EDV(MOD-sp4): 69.8 ml EDV(sp4-el): 70.8 ml LVAs ap4: 16.4 cm2 LVLs ap4: 7.0 cm ESV(MOD-sp4): 35.2 ml ESV(sp4-el): 32.6 ml EF(MOD-sp4): 49.6 % EF(sp4-el): 54.0 % _ LA A4 area: 15.4 cm2 LA dimension(2D): 3.7 cm RA A4 area: 20.6 cm2 Time Measurements MV dec time: 0.10 sec Doppler Measurements & Calculations MV E max randolph: 77.4 cm/sec Lat Peak E' Randolph: 6.5 cm/sec Med Peak E' Randolph: 5.6 cm/sec MV A max randolph: 95.8 cm/sec E/E' lat: 11.9 E/E' med: 13.7 MV E/A: 0.81 _ MV V2 max: 98.8 cm/sec MV dec slope: 744.6 cm/sec2 Ao V2 max: 115.8 cm/sec MV max P.9 mmHg Ao max P.4 mmHg MV V2 mean: 65.6 cm/sec Ao V2 mean: 77.2 cm/sec MV mean P.9 mmHg Ao mean P.8 mmHg MV V2 VTI: 29.2 cm Ao V2 VTI: 25.7 cm MVA(VTI): 3.6 cm2 AV (velocity ratio): 1.1 STEPHAN(I,D): 4.1 cm2 STEPHAN(V,D): 3.9 cm2 _ LV V1 max: 115.8 cm/sec SV(LVOT): 105.0 ml PA V2 max: 92.9 cm/sec LV V1 max P.4 mmHg PA V2 mean: 66.7 cm/sec LV V1 mean P.4 mmHg LV V1 mean: 88.8 cm/sec LV V1 VTI: 27.0 cm ECHO/Echo Complete Interpretation Summary Normal LV size. Left ventricular systolic function is normal. The left ventricular ejection fraction is 65 %. Hypermobile atrial septum. Stage 1 diastolic dysfunction. Ordering Physician: Aba Cruz Referring Physician: Rich Burnett M.D. Performed By: Adelia Cochran RCS
[2024-08-30 10:13] LABS: BNP,B-Type NATRIURETIC PEPTIDE 84.2 pg/mL (0-100)
--- NOTE | 2024-08-30 12:40 | PN.HOSP_ITS ---
Reason for Visit Reason for Visit: Diagnoses Hypoxemia (08/29/24) Nausea with vomiting, unspecified (08/29/24) Diarrhea, unspecified (08/29/24) Subjective Subjective Saw patient at bedside this morning, present. Patient had just used the bathroom to urinate and was walking back to his bed when I saw him. He had good energy level and was walking without issue. Noted that his abdominal cramping felt improved this morning. Did have a significant loose bowel movement earlier this morning and her stool sample was positive for norovirus. He tolerated clear liquid diets without issue this morning and was asking for regular diet as he was feeling hungry. He otherwise was requiring 4 L nasal cannula to maintain appropriate oxygen saturations. Does not wear home oxygen but is a longtime smoker and currently smokes about half pack per day. Denies any shortness of breath at rest or with exertion. No other acute concerns. Objective Data Objective Data Vital Signs: Vital Signs Temp Pulse Resp BP Pulse Ox O2 Del Method O2 Flow Rate 97.2 F L 86 18 125/65 H 96 Nasal Cannula 3 08/30/24 08:38 08/30/24 08:38 08/30/24 08:38 08/30/24 08:38 08/30/24 08:38 08/30/24 09:00 08/30/24 11:26 Oxygen Flow Rate (L/min) 3 Oxygen Delivery Method Nasal Cannula Weight: 77.9 kg Body Mass Index (BMI) 24.6 Intake & Output: Intake and Output for Last 24 Hours 08/28/24 08/29/24 08/30/24 23:59 23:59 23:59 Intake Total 1000 / 1000 605 / 605 Balance 1000 / 1000 605 / 605 Lab / Micro Data 08/30/24 06:10 08/30/24 06:10 Labs: Laboratory Results - last 24 hr 08/29/24 18:15: WBC 14.4 H, RBC 4.80, Hgb 15.0, Hct 45.0, MCV 93.8, MCH 31.3, MCHC 33.3, RDW Std Deviation 49.8 H, RDW Coeff of Maged 14.6, Plt Count 270, MPV 9.8, Immature Gran % (Auto) 0.500, Neut % (Auto) 91.0 H, Lymph % (Auto) 3.1 L, [place] % (Auto) 4.6, Eos % (Auto) 0.5, Baso % (Auto) 0.3, Absolute Neuts (auto) 13.1 H, Absolute Lymphs (auto) 0.44 L, Nucleated RBC % 0, PT 13.7, INR 1.0, APTT 28.9, Sodium 140, Potassium 3.9, Chloride 109 H, Carbon Dioxide 26.0, Anion Gap 5, BUN 18, Creatinine 1.44 H, Estim Creat Clear Calc 36.82, Est GFR (MDRD) Af Amer 60, Est GFR (MDRD) Non-Af 49 L, BUN/Creatinine Ratio 12.5, Glucose 145 H, Calcium 8.5, Total Bilirubin 0.50, AST 14 L, ALT 18, Alkaline Phosphatase 61, Troponin I High Sens 15, B-Natriuretic Peptide 67.9, Total Protein 7.6, Albumin 3.2, Globulin 4.4 H, Albumin/Globulin Ratio 0.7 L, Lipase 19 L 08/29/24 19:53: Urine Color Yellow, Urine Clarity Clear, Urine pH 6.0, Ur Specific [place] 1.010, Urine Protein 30 H, Urine Glucose (UA) Normal, Urine Ketones Negative, Urine Occult Blood Negative, Urine Nitrite Negative, Urine Bilirubin Negative, Urine Urobilinogen 1 H, Ur Leukocyte Esterase Negative, Urine RBC 0 SEEN, Urine WBC 0 SEEN, Ur Squamous Epith Cells 0 SEEN, Urine Bacteria 0 SEEN, Urine Mucus 0 SEEN 08/30/24 00:14: Procalcitonin 0.36 H 08/30/24 06:10: WBC 9.5, RBC 4.07 L, Hgb 12.8 L, Hct 38.7 L, MCV 95.1 H, MCH 31.4, MCHC 33.1, RDW Std Deviation 51.8 H, RDW Coeff of Maged 14.8 H, Plt Count 227, MPV 10.4, Immature Gran % (Auto) 0.400, Neut % (Auto) 78.1 H, Lymph % (Auto) 10.4 L, [place] % (Auto) 9.1, Eos % (Auto) 1.6, Baso % (Auto) 0.4, Absolute Neuts (auto) 7.4, Absolute Lymphs (auto) 0.99, Nucleated RBC % 0, Sodium 141, Potassium 3.8, Chloride 111 H, Carbon Dioxide 25.0, Anion Gap 5, BUN 17, Creatinine 1.24, Estim Creat Clear Calc 44.15, Est GFR (MDRD) Af Amer 71, Est GFR (MDRD) Non-Af 59 L, BUN/Creatinine Ratio 13.7, Glucose 94, Calcium 8.2 L, Total Bilirubin 0.40, AST 15, ALT 15 L, Alkaline Phosphatase 54, B-Natriuretic Peptide 84.2, Total Protein 6.7, Albumin 2.7 L, Globulin 4.0, Albumin/Globulin Ratio 0.7 L Micro: Microbiology 08/30/24 06:40 Stool Enteric Bacteriology - Final Norovirus 08/30/24 06:40 Stool Clostridioides difficile (PCR) - Final 08/29/24 23:09 Mucosa - Nasopharyngeal Respiratory Panel (PCR) - Final 08/29/24 19:53 Urine, Clean Catch Legionella Antigen - Final 08/29/24 19:53 Urine, Clean Catch Streptococcus pneumoniae Antigen (M - Final 08/29/24 18:13 Mucosa - Nose SARS-CoV-2, Influenza & RSV (PCR) - Final Radiography Diagnostic Testing: Radiology Impression Abdomen/Pelvis CT 08/29/24 17:48 IMPRESSION: No acute abnormalities of the abdomen or pelvis. Fluid-filled loops of small bowel which may represent diarrheal illness. Diverticulosis. Left lower density which may represent infiltrate versus atelectasis. Partially visualized emphysematous changes of the lungs. Indeterminate left adrenal nodule. No follow-up recommended based on size. Prostatomegaly. One or more dose reduction techniques were used (e.g., Automated exposure control, adjustment of the mA and/or kV according to patient size, use of iterative reconstruction technique). Reading Location: [facility] Chest X-Ray 08/29/24 19:15 IMPRESSION: Pulmonary findings as above. Reading Location: [facility] Physical Exam Const alert, oriented x3, no apparent distress and average body habitus Constitutional Narrative: Elderly male, standing comfortably at edge of bed with good energy level, conversing normally, no acute distress. General Appearance: cooperative and comfortable HEENT normocephalic, head/scalp atraumatic, hearing grossly normal bilaterally, nasal mucous membranes and turbinates normal and moist oral mucous membranes Eyes PERRL, EOMs intact bilaterally and conjunctivae normal Neck full ROM Chest inspection of chest normal Resp normal respiratory effort and no use of accessory muscles Resp Narrative: Breathing comfortably on 4 L nasal cannula at rest. Mildly decreased breath sounds bilaterally with basilar crackles noted. No wheezing noted. Cardio regular rate, regular rhythm, no murmurs and peripheral pulses 2+ throughout GI normal to inspection, nondistended, normoactive bowel sounds, soft to palpation, non-tender and non-distended Back/Spine normal ROM Extremity normal to inspection, full ROM and no pedal edema Skin no rashes or lesions noted Psych mental status grossly normal Assessment & Plan Assessment/Plan (1) Norovirus: (2) Hypoxia: PLAN: Plan Patient is an 88-year-old male who presented [facility] ED on 08/29/2024 with nausea, vomiting and diarrhea with weakness. 1. Norovirus infection ? Presented with nausea, vomiting and diarrhea. Stool sample on 08/30 positive for norovirus. Patient with clinical improvement in 08/30, escalated to regular diet and we will see how patient tolerates this. Continue symptomatic management. Contact precautions in place. 2. 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 Requiring 4 L nasal cannula on admit to maintain appropriate oxygen saturations. Chest x-ray showed small bilateral pleural effusions and mild vascular congestion. Reviewed CT chest from November 2022 and this showed significant bilateral upper lobe emphysema changes. Procalcitonin very mildly elevated and patient with no symptoms of pneumonia, low concern for community- acquired pneumonia, antibiotics discontinued on 08/30. Wean supplemental oxygen as able but suspect patient may need oxygen on discharge. Continue home inhalers. 3. Tobacco use disorder ? Current smoker, smokes about half pack per day. Discussed cessation. Denied need for NRT while inpatient. Chronic medical conditions: ? CKD stage IIIa: Creatinine 1.44 on admit, improved to 1.24 on hospital day 2. Appears to be at baseline. ? History of nonobstructive CAD, history of PAD, hypertension, hyperlipidemia, history of TIA: Stable. Continue home meds. ? Allergic rhinitis: Continue home meds. DVT prophylaxis: Lovenox CODE STATUS: Full code, verified Expected disposition: Home, 1 to 2 days Total clinical time spent by myself addressing the patient's medical issues, reviewing all the data, and collaborating with patient's care team: 35 minutes. Charges/Coding Visit Charges Inpatient E&M: 14603 Subs Hosp L2
--- NOTE | 2024-08-30 13:15 | CASEMGMT ---
KILEY DODD Assessment: Face to Face with pt for initial transition planning/care coordination assessment. KILEY DODD introduced self and role at [facility], pt voices understanding and consents to assessment. Pt is A&O x4 and answers all questions appropriately at this time. Pt sitting up in bed eating his liquid lunch with oxygen on in no distress. Care providers, pharmacy, and demographics verified/updated. Admitting Dx: hypoxia, ? pna, N/V/D Strata Score: 2 PCP:Lex Specialists:Chidi, cardio; rn placement, unsure of name Preferred Pharmacy: [facility] [place] Insurance: [employer] [facility] Prescription Benefit: yes LNOK: Keon Escudero, Living Arrangements: Pt lives with in a single story home with 3 steps to enter with a rail. Pt reports prior to hospitalization he was indep in ADL/IADLs and denies concerns at home. Transportation: Pt drives self and denies concerns with transportation. DME:pox HHC/SNF:Denies hx of Pt states no concerns with going home at time of dc. Provided pt with a verbal local in network list of DME companies should pt need to dc with oxygen, pt chose [employer]. Pt states his strength is good and pt states he feels much better than yesterday. Pt states no further concerns/needs. CM to follow. Advised pt to ask CM if any further questions/concerns/needs arise, voices understanding. Pt Goal: Home Plan: Home, follow for oxygen and follow therapy Venecia CAO CM
[2024-08-30 14:04] VITALS: BP 119/63; PULSE 77; RESP 15; TEMP 36.5; O2SAT 96
[2024-08-30 19:36] VITALS: PULSE 82; RESP 18; O2SAT 93
[2024-08-30 20:22] VITALS: BP 126/76; PULSE 84; RESP 18; TEMP 36.6; O2SAT 95
[2024-08-30] MEDS: Atorvastatin Calcium 20 MG Tablet PO (21:37)
[2024-08-30] MEDS: traZODone 100 MG Tablet 150 MG PO (21:37)
[2024-08-31 02:20] VITALS: BP 135/70; PULSE 76; RESP 16; TEMP 36.7; O2SAT 95
[2024-08-31 05:19] VITALS: BMI 24.7
[2024-08-31 06:38] LABS: Hematocrit 37.2 % (40-54); Hemoglobin 12.5 g/dL (13.0-16.5); Mean Corp Hgb Conc 33.6 g/dL (32-36); Mean Corpuscular Hgb 31.8 pg (27.0-32.0); Mean Corpuscular Volume 94.7 fL (80-94); Mean Platelet Vol. 10.1 fl (6.2-12.0); Platelet Count 225 K/mm3 (150-450); RBC Distribution Width CV 14.6 % (11.6-14.6); RBC Distribution Width SD 51.1 fl (35.1-43.9); Red Blood Count 3.93 M/mm3 (4.6-6.2); White Blood Count 6.2 K/mm3 (4.4-11.0)
[2024-08-31] MEDS: Budesonide Respules 0.5 MG/2 ML AMPUL.NEB. INHALATION (06:58)
[2024-08-31 06:59] VITALS: PULSE 75; RESP 18; O2SAT 95
[2024-08-31 07:15] LABS: Anion Gap 4 (5-15); BUN 12 mg/dL (7-18); BUN/Creat Ratio 11.3 RATIO (10-20); Calcium,Total 8.1 mg/dL (8.5-10.1); Chloride 110 mmol/L (98-107); Creatinine, Serum 1.06 mg/dL (0.70-1.30); EST Glomerular Filtration Rate 70 mL/min (>60); Est Glom Filt Rate - Afr Amer 85 mL/min (>60); Estimated Creatinine Clearance 51.65 ml/min; Glucose 101 mg/dL (74-106); Potassium 3.6 mmol/L (3.5-5.1); Sodium Level 140 mmol/L (136-145)
[2024-08-31 07:59] VITALS: BP 135/69; PULSE 75; RESP 18; TEMP 36.4; O2SAT 93
[2024-08-31] MEDS: Enoxaparin 40 MG/0.4 ML Syringe SC (08:02)
[2024-08-31] MEDS: Pantoprazole Sodium 40 MG Tablet PO (08:03)
[2024-08-31] MEDS: amLODIPine 5 MG Tablet PO (08:03)
[2024-08-31] MEDS: Clopidogrel Bisulfate 75 MG Tablet PO (08:03)
[2024-08-31] MEDS: Fluticasone 0.05% 1 SPRAY NASAL.SRY 2 SPRAY NASAL (08:04)
[2024-08-31] MEDS: Furosemide 40 MG/4 ML Vial IV (08:05)
[2024-08-31 08:13] VITALS: PULSE 80
[2024-08-31 11:05] VITALS: BP 122/53; PULSE 80; RESP 20; TEMP 36.8; O2SAT 96
[2024-08-31 11:08] VITALS: O2SAT 88; O2SAT 92; O2SAT 93
[2024-08-31] MEDS: Lisinopril 40 MG Tablet PO (11:18)
--- NOTE | 2024-08-31 11:33 | PCM.DC.SUM ---
Providers Date of Admission: 08/29/24 Date of Discharge: 08/31/24 Primary Care Physician: Dr. Rich Burnett MD Reason For Visit: HYPOXIA, ? PNA, N/V/D Diagnosis Discharge Diagnosis (1) Norovirus: Status: Acute Code(s): A08.11 - Acute gastroenteropathy due to [place] agent (2) Hypoxia: Status: Acute Code(s): R09.02 - Hypoxemia Medications at Discharge Home Medications multivitamin (Multiple Vitamins tablet) 1 ea PO DAILY SUPPLEMENT 01/24/17 tiotropium bromide 18 mcg capsule with inhalation device (Spiriva with HandiHaler) 2 puff IH QHS BREATHING 01/24/17 ascorbic acid (vitamin C) 500 mg tablet (Vitamin C) 500 mg PO DAILY@0800 Supplimentation 07/31/18 clopidogrel 75 mg tablet 75 mg PO DAILY Blood thinn 07/31/18 fluticasone propionate 50 mcg/actuation nasal spray,suspension 2 spray intranasal BID Allergies 07/31/18 lisinopril 40 mg tablet 40 mg PO DAILY BP 08/08/20 simvastatin 40 mg tablet 40 mg PO DAILY CHOLESTEROL 08/08/20 trazodone 150 mg tablet 150 mg PO QHS SLEEP 08/08/20 albuterol sulfate 90 mcg/actuation aerosol inhaler 2 puff inhalation Q6H PRN PRN wheezing/sob 12/21/22 amlodipine 5 mg tablet 2.5 mg PO DAILY HTN 08/28/24 Hospital Course Operations None Procedures EKG, Transthoracic echo and - (Chest x-ray, CT abdomen pelvis) Summary of Care Provided Minutes Spent on Discharge: 35 Hospital Course: Patient is an 88-year-old male who presented [facility] ED on 08/29/2024 with nausea, vomiting and diarrhea with weakness. Hospital course as noted below. Patient discharged home in stable condition on 08/31. 1. Norovirus infection ? Presented with nausea, vomiting and diarrhea. Stool sample on 08/30 positive for norovirus. Patient with good clinical improvement while inpatient, transitioned to regular diet and tolerated this well. No further needs on discharge. 2. 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 Required 4 L nasal cannula on admit to maintain appropriate oxygen saturations. Chest x-ray showed small bilateral pleural effusions and mild vascular congestion. Reviewed CT chest from November 2022 and this showed significant bilateral upper lobe emphysema changes. Procalcitonin very mildly elevated and patient with no symptoms of pneumonia, low concern for community-acquired pneumonia, antibiotics discontinued on 08/30. Gave dose of IV Lasix on day of discharge with good urine output. Completed O2 testing on day of discharge and patient did require 2 L nasal cannula with exertion, oxygen prescription sent. Continue home inhalers on discharge. 3. Tobacco use disorder ? Current smoker, smokes about half pack per day. Discussed cessation. Denied need for NRT while inpatient. Chronic medical conditions: ? CKD stage IIIa: Creatinine 1.44 on admit, improved to 1.24 on hospital day 2. Appears to be at baseline. ? History of nonobstructive CAD, history of PAD, hypertension, hyperlipidemia, history of TIA: Stable. Continue home meds. ? Allergic rhinitis: Continue home meds. Total clinical time spent by myself addressing the patient's medical issues, reviewing all the data, and collaborating with patient's care team: 35 minutes. Physical Exam Const alert, oriented x3, no apparent distress and average body habitus Constitutional Narrative: Elderly male, standing comfortably at edge of bed with good energy level, conversing normally, no acute distress. Stable. General Appearance: cooperative and comfortable HEENT normocephalic, head/scalp atraumatic, hearing grossly normal bilaterally, nasal mucous membranes and turbinates normal and moist oral mucous membranes Eyes PERRL, EOMs intact bilaterally and conjunctivae normal Neck full ROM Chest inspection of chest normal Resp normal respiratory effort and no use of accessory muscles Resp Narrative: Breathing comfortably on @ L nasal cannula at rest. Mildly decreased breath sounds bilaterally with basilar crackles noted. No wheezing noted. Stable. Cardio regular rate, regular rhythm, no murmurs and peripheral pulses 2+ throughout GI normal to inspection, nondistended, normoactive bowel sounds, soft to palpation, non-tender and non-distended Back/Spine normal ROM Extremity normal to inspection, full ROM and no pedal edema Skin no rashes or lesions noted Psych mental status grossly normal Weight / BMI Weight Weight: 78.4 kg Body Mass Index (BMI) 24.7 ABG / Lab / Microbiology Data 08/31/24 06:22 08/31/24 06:22 Laboratory: Laboratory Results - last 24 hr 08/31/24 06:22: WBC 6.2, RBC 3.93 L, Hgb 12.5 L, Hct 37.2 L, MCV 94.7 H, MCH 31.8, MCHC 33.6, RDW Std Deviation 51.1 H, RDW Coeff of Maged 14.6, Plt Count 225, MPV 10.1, Sodium 140, Potassium 3.6, Chloride 110 H, Carbon Dioxide 26.0, Anion Gap 4 L, BUN 12, Creatinine 1.06, Estim Creat Clear Calc 51.65, Est GFR (MDRD) Af Amer 85, Est GFR (MDRD) Non-Af 70, BUN/Creatinine Ratio 11.3, Glucose 101, Calcium 8.1 L Microbiology: Microbiology 08/29/24 23:15 Sputum, Expectorated/Coughed Gram Stain - Final 08/29/24 23:15 Sputum, Expectorated/Coughed Respiratory Culture - Preliminary 08/30/24 06:40 Stool Enteric Bacteriology - Final Norovirus 08/30/24 06:40 Stool Clostridioides difficile (PCR) - Final 08/29/24 23:09 Mucosa - Nasopharyngeal Respiratory Panel (PCR) - Final 08/29/24 19:53 Urine, Clean Catch Legionella Antigen - Final 08/29/24 19:53 Urine, Clean Catch Streptococcus pneumoniae Antigen (M - Final 08/29/24 18:13 Mucosa - Nose SARS-CoV-2, Influenza & RSV (PCR) - Final Radiography Diagnostic Testing: Radiology Impression Echocardiogram 08/30/24 09:13 Interpretation Summary Normal LV size. Left ventricular systolic function is normal. The left ventricular ejection fraction is 65 %. Hypermobile atrial septum. Stage 1 diastolic dysfunction. Ordering Physician: Aba Cruz Referring Physician: Rich Burnett M.D. Performed By: Adelia Cochran RCS D/C Instructions DC O2, CPAP, BIPAP Needs RN Home O2 Qualification: Home O2 Qualification: Is the patient on home oxygen No 08/31/24 11:08 Home O2 Qualification: AT REST 1- Pulse Ox at rest 92 08/31/24 11:08 Home O2 Qualification: WITH AMBULATION 1- Pulse Ox with ambulation 88 08/31/24 11:08 1- Oxygen Flow Rate with 0 08/31/24 11:08 ambulation 2- Pulse Ox with ambulation 93 08/31/24 11:08 2- Oxygen Flow Rate with 2 08/31/24 11:08 ambulation Home O2 Discharge instructions: Yes Type of respiratory needs?: Oxygen Oxygen frequency: With Ambulation Oxygen liters per minute during Ambulation: 2 DC home with Oxygen: Yes Home O2 MD Review: I have reviewed the oxygen testing, and the patient qualifies for home oxygen equipment and portability. The patient is mobile in the home and the community. Meaningful Use Info Meaningful Use Meaningful Use Diagnoses (Choose all that apply): None applicable Ischemic Stroke Statin Dosing Therapy Reference: STATIN DOSE THERAPY REFERENCE: * Patients > 75 years receive moderate or high dose statin therapy. * Patients 75 years or YOUNGER should receive HIGH intensity statin dose unless contraindicated. You will be required to document reason for non-treatment if statin daily dose does not meet guidelines. HIGH DOSE STATIN THERAPY DAILY Atorvastatin > than or = to 40 mg Rosuvastatin > than or = to 20 mg Amlodipine + Atorvastatin > than or = to 2.5/40 mg Ezetimibe + Simvastatin 10/80 mg Simvastatin 80mg Discharge Plan Admission Admit Date/Time: 08/29/24 22:11 Primary Reason for Your Visit: GI symptoms Attending Provider: Aba Cruz Primary Care Provider: Rich Burnett Consulting Providers: Wilma Espinosa Instructions Additional Instructions / Restrictions: Please use 2 L of oxygen with exertion to maintain oxygen levels greater than 88%. Continue all home medications as normal. Discharge Orders/Prescriptions Prescriptions: Continued multivitamin [Multiple Vitamins] 1 EACH tablet 1 ea PO DAILY Patient Comments: supplement tiotropium bromide [Spiriva with HandiHaler] 18 MCG capsule, w/inhalation device 2 puff IH QHS Patient Comments: breathing clopidogrel 75 MG tablet 75 mg PO DAILY Patient Comments: Take 1 tablet by mouth once daily. ascorbic acid (vitamin C) [Vitamin C] 500 MG tablet 500 mg PO DAILY@0800 fluticasone propionate 1 SPRAY spray,suspension 2 spray intranasal BID simvastatin 40 MG tablet 40 mg PO DAILY trazodone 150 MG tablet 150 mg PO QHS Patient Comments: Take 1 tablet by mouth daily at bedtime. lisinopril 40 MG tablet 40 mg PO DAILY amlodipine 5 mg tablet 2.5 mg PO DAILY albuterol sulfate 90 mcg/actuation HFA aerosol inhaler 2 puff INHALATION Q6H PRN PRN (Reason: wheezing/sob) Patient Comments: Inhale 2 Puffs as instructed every 6 hours as needed. Referrals / Follow Up: Rich Burnett MD [Primary Care Provider] - Disposition Disposition (needs filled in before D/C Order can be placed): Home, Self Care Charges/Coding Visit Charges Inpatient E&M: 13730 Disch Hosp >30min
--- NOTE | 2024-08-31 11:36 | PCM.HOSP.N ---
Hospitalist Note I have reviewed the oxygen testing, and this patient qualifies for the home equipment and portability. The patient is mobile in the home and the community.
--- NOTE | 2024-08-31 11:38 | CASEMGMT ---
Addendum entered by Teri Bowles 08/31/24 13:56: 1134- KILEY DODD into pt room, pt present. Pt aware that we are awaiting delivery of oxygen tank. Reviewed homegoing oxygen instructions. Pt denies any other homegoing needs or questions at this time. Original Note: Pt qualifies for oxygen upon exertion. [place] [facility] [place] [facility]. Pt to al home this date.
== END 2024-08-31 13:42 | disposition home or self-care (01) | DRG 392 ==
LOC: ED 21:34 → MS3 22:17
PROVIDERS: Admitting Provider Family Medicine; Emergency Provider Surgery; PCP Internal Medicine; Visit Provider Hospitalist
DX: A08.11 Acute gastroenteropathy due to Norwalk agent (principal); J44.0 Chronic obstructive pulmonary disease with (acute) lower respiratory infection; N18.31 Chronic kidney disease, stage 3a; I12.9 Hypertensive chronic kidney disease with stage 1 through stage 4 chronic kidney disease, or unspecified chronic kidney disease; I73.9 Peripheral vascular disease, unspecified; E78.5 Hyperlipidemia, unspecified; I25.10 Atherosclerotic heart disease of native coronary artery without angina pectoris; F17.210 Nicotine dependence, cigarettes, uncomplicated; J30.9 Allergic rhinitis, unspecified; R73.9 Hyperglycemia, unspecified; Z79.51 Long term (current) use of inhaled steroids; Z79.899 Other long term (current) drug therapy; Z79.02 Long term (current) use of antithrombotics/antiplatelets; Z86.73 Personal history of transient ischemic attack (TIA), and cerebral infarction without residual deficits
CPT/HCPCS: 36415; 71046; 74177; 80048; 80053; 81001; 83690; 83880; 84145; 84484; 85025; 85027; 85610; 85730; 87070; 87077; 87186; 87205; 87449; 87493; 87506; 87631; 87633; 93005; 93306; 94640; 94668; 97162; 99285; Q9967; A4216; J1940; J2405

== ENCOUNTER → 2024-10-05 | Outpatient (CLI) | payer MEDICARE, SELFPAY | END | disposition home or self-care (01) | LOC: CVS 08:53 | PROVIDERS: PCP Internal Medicine; Referring Provider Internal Medicine Cardiovascular Disease; Visit Provider Internal Medicine Cardiovascular Disease | DX: R00.0 Tachycardia, unspecified (principal) | CPT/HCPCS: 93225; 93226 ==